=== PATIENT | female | born 2000 | race African-American/Black ===

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

== ENCOUNTER 2020-02-19 19:55 | Emergency (ER) | payer MEDICAID, SELFPAY ==
[2020-02-19 19:56] VITALS: BP 127/68; PULSE 77; RESP 16; TEMP 36.8; O2SAT 99; BMI 34.0
--- NOTE | 2020-02-19 20:09 | ED.VIS.GEN ---
History of Present Illness Chief Complaint: Bite Informant: Patient Onset: Days Context: Gradual Onset Timing: Continuous Current Severity: Moderate Maximum Severity: Moderate Narrative: The patient is an otherwise healthy female who presents to the emergency department with bites. Patient states that she is currently staying in a house of patient with disability has a home health aide. She states that 2 days ago, she woke with some bites on her arm. She states they itch but then went away. She states she slept in the same place and woke again today with the same symptoms. She denies any fevers or chills. She states that they have expanded and have been itching. She denies any other symptoms. She is otherwise been in her normal state of health. Prior similar symptoms: No Recent Illness/Hospitalization: No Past Medical History - Allergies and Home Meds Allergies/Adverse Reactions: Allergies No Known Allergies Allergy (Verified 02/19/20 19:58) Primary Care Physician: Tiffany Wells MD [Primary Care Provider] - Prior records reviewed: Yes Past Medical History: None Surgical History: no surgical history Smoking Status: Never smoker Review of Systems General: Denies: Chills, Fever, Sweats Eyes: Denies: Visual changes - bilaterally, Diplopia ENT: Denies: Rhinorrhea, Sore throat Cardiovascular: Denies: Chest pain, Palpitations Respiratory: Denies: Dyspnea, Cough, Dyspnea on exertion Gastrointestinal: Denies: Abdominal pain, Nausea, Vomiting, Diarrhea, Melena, Hematochezia Genitourinary: Denies: Dysuria, Hematuria, Frequency Musculoskeletal: Denies: Back pain, Extremity Pain Skin: Reports: Rash. Denies: Wounds Neurological: Denies: Headache, Weakness, Numbness Physical Exam Vital Signs/Narrative: Vital Signs Temp Pulse Resp BP Pulse Ox 02/19/20 19:56 98.3 F 77 16 127/68 H 99 Inital Vital Signs reviewed: Yes General: Well nourished, Well developed, No Acute Distress Head: Normocephalic, Atraumatic Eyes: Perrl, EOMI ENT: Moist mucous membranes, No rhinorrhea Neck: Supple, Nontender Cardiovascular: Regular rate, Regular rhythm, No murmurs Respiratory: No distress, CTA bilaterally, Chest nontender Abdomen: Soft, Nontender, Nondistended, Normal bowel sounds Back: Nontender, Normal Inspection Extremities: Nontender, No edema Skin: Normal color, Rash - Patient has linear urticaria on the left arm and left neck. There is no expansion or cellulitis. Neurological: Alert, Oriented x3, Cranial nerves II-XII grossly intact, Normal Strength, Normal Sensation Psychological: Normal affect, Normal Mood Diagnostic/Tx/Re-eval - Medical Decision Making The patient symptoms do seem consistent with bites. There is some urticaria and some swelling of the neck. There is no trismus or stridor. These do not seem to be infectious in nature. The patient will be treated with prednisone and Benadryl. She will be discharged home. Impression 1. Bug bites ED Disposition - Plan for ED Patient: Instructions: ED Insect Sting Local Reaction Prescriptions: Prednisone [Deltasone] 40 mg PO DAILY #10 tab Prescription Printed Referrals: Tiffany Wells MD [Primary Care Provider] -
[2020-02-19 20:39] VITALS: PULSE 74; RESP 18; O2SAT 99
[2020-02-19] MEDS: predniSONE 20 MG Tablet 40 MG PO (20:39)
[2020-02-19] MEDS: DiphenhydrAMINE 25 MG Capsule 50 MG PO (20:39)
== END 2020-02-19 20:41 | disposition home or self-care (01) ==
PROVIDERS: Emergency Provider Emergency Medicine; PCP Pediatrics
DX: S40.862A Insect bite (nonvenomous) of left upper arm, initial encounter (principal); S10.96XA Insect bite of unspecified part of neck, initial encounter; W57.XXXA Bitten or stung by nonvenomous insect and other nonvenomous arthropods, initial encounter; Y93.84 Activity, sleeping; Y92.003 Bedroom of unspecified non-institutional (private) residence as the place of occurrence of the external cause; Y99.8 Other external cause status
CPT/HCPCS: 99283

== ENCOUNTER 2020-04-10 22:10 | Outpatient (REF) | payer SELFPAY ==
[2020-04-11 01:15] LABS: Internal QC Validated? YES +Cl - CLEAR BKGD; Pregnancy, Urine Negative Negative
== END 2020-04-11 01:00 | disposition home or self-care (01) ==
LOC: EDREF 22:10
PROVIDERS: Emergency Medicine
DX: Z04.41 Encounter for examination and observation following alleged adult rape (principal)
CPT/HCPCS: 81025

== ENCOUNTER 2020-07-12 17:04 | Emergency (ER) | payer MEDICAID, SELFPAY ==
[2020-07-12 17:04] VITALS: BP 130/109; PULSE 129; RESP 18; TEMP 37.9; O2SAT 99; BMI 29.5
--- NOTE | 2020-07-12 17:34 | CT_ITS ---
STUDY: CT SOFT TISSUE NECK WITH CONTRAST REASON FOR EXAM: Female, 19 years old. FEVER, SORE THROAT, NEG STREP, TESTED FOR COVID THIS AM. RADIATION DOSAGE (If Supplied By Facility): CTDIvol = ( 17.58 ) mGy, DLP = ( 505.07 ) mGycm TECHNIQUE: The patient was scanned in a multi-detector CT scanner. High resolution transaxial imaging was performed following intravenous administration of IV 100mL Isovue-370. Sagittal and coronal images were reconstructed. Individualized dose optimization techniques were used for this CT. COMPARISON: None. FINDINGS: Normal bilateral parotid glands. Normal bilateral recyclable products sorter spaces. Normal bilateral parapharyngeal spaces. Normal bilateral carotid spaces. Normal bilateral sublingual and submandibular glands and spaces. Normal visualized nasopharynx. Normal retropharyngeal space. Normal perivertebral space. There is bilateral tonsillar enlargement, this is best seen on axial images 55 through 72. It is more pronounced on the left side with impingement upon the posterior lateral oropharynx. There is some subtle heterogeneous enhancement but no discrete low-density fluid collection is noted to suspect an abscess. ENT consultation recommended. The visualized tongue, tongue base and oropharynx are normal. The visualized cervical lymph nodes (levels I-) are within normal size limits, and maintain normal morphology. There is no demonstrated solid or cystic mass lesion. There is no abnormal contrast enhancement. Normal epiglottis, bilateral vallecula and hypopharynx. The pre-epiglottic and paraglottic adipose spaces are normal. Normal visualized bilateral piriform sinuses, aryepiglottic folds, vocal cords, and arytenoid-cricoid articulations. Normal subglottic trachea. Normal bilateral lobes of the thyroid gland. Normal visualized pulmonary apices. Normal visualized paranasal sinuses. Normal visualized cervical spine. CT/Soft Tissue Neck WITH Contrast IMPRESSION: There is bilateral pharyngeal tonsillar enlargement more pronounced on the left than the right consistent with tonsillitis. There is impingement upon the posterior and left side of the oropharynx. There is heterogeneous enhancement but no discrete low-density abscess is noted. ENT consultation is recommended. Bilateral subcentimeter jugular chain lymphadenopathy No suspicious osseous lesion Electronically Signed: Jose Manuel Hanks MD at 18:43 EDT , Service support ,
--- NOTE | 2020-07-12 17:47 | ED.DCSUM_ITS ---
- ER Visit Summary Date of Service: 07/12/20 Chief Complaint: Sore throat History of Present Illness: The patient is a 19 F presenting with sore throat and painful swallowing. She states this started 4 days ago. She was seen at urgent care yesterday and had a negative strep test done at that time. She was tested for COVID this morning and this test is still pending. She tried Tylenol at home. She denies sick contacts. She has had temperature up to 100 at home. Denies rhinorrhea or cough. Denies other complaints. Physical Examination: Vitals are stable. Temperature 100.2, heart rate 129. Alert no acute distress. HEENT exam bilateral tonsillar exudate, uvula midline Neck is supple. No meningismus Lungs are clear and equal bilaterally. Heart is regular tachycardic Abdomen is soft nontender nondistended. Extremities are unremarkable. Skin is warm and dry. No rash No focal neurologic deficit. Remainder of exam is unremarkable. Emergency Department Course and Treatment: Patient given IV fluids, Toradol. She was given Decadron and Tylenol p.o. Mckenzie negative. Strep negative. CT soft tissue neck shows there is bilateral pharyngeal tonsillar enlargement more pronounced on the left than the right consistent with tonsillitis. There is impingement upon the posterior and left side of the oropharynx. There is heterogeneous enhancement but no discrete low-density abscess is noted. ENT consultation is recommended. Bilateral subcentimeter jugular chain lymphadenopathy. No suspicious osseous lesion. Discussed with Dr. Noland. He recommends Augmentin and outpatient follow-up. On reevaluation, patient is feeling much improved. Her repeat heart rate is 100. She is able to swallow without difficulty. She is advised to follow-up with ENT. Advised return to the ED for worsening complaints. Disposition: Discharge home Impression: Tonsillitis This note was generated with [employer] dictation software. It may contain incorrect words, spelling, and punctuation that were not noted in review of the chart prior to signing ED Disposition - Plan for ED Patient: Referrals: Tiffany Wells MD [Primary Care Provider] -
[2020-07-12] MEDS: 0.9% Normal Saline 1,000 ML 1000 ML IV (18:03)
[2020-07-12] MEDS: Acetaminophen 500 MG Tablet 1000 MG PO (18:04)
[2020-07-12] MEDS: dexAMETHasone 4 MG Tablet PO (18:04)
[2020-07-12] MEDS: Ketorolac 15 MG/ML Vial IV (18:04)
[2020-07-12 18:27] LABS: Internal QC Validated? YES +Cl - CLEAR BKGD; Monotest Negative (Negative)
--- NOTE | 2020-07-12 20:08 | ED.DEP ---
ED Disposition - Plan for ED Patient: Prescriptions: Amox/Clavulanate Tablet [Augmentin Tablet] 875 mg PO Q12H #20 tab Prescription Printed Referrals: Tiffany Wells MD [Primary Care Provider] - Tristan Maguire MD [STAFF PHYSICIAN] -
[2020-07-12] MEDS: Amox/Clavulanate 875 MG Tablet PO (20:43)
[2020-07-12 20:46] VITALS: RESP 16
== END 2020-07-12 20:47 | disposition home or self-care (01) ==
LOC: ED 17:42
PROVIDERS: Emergency Provider Emergency Medicine; PCP Pediatrics
DX: J03.90 Acute tonsillitis, unspecified (principal); Z20.828 Contact with and (suspected) exposure to other viral communicable diseases
CPT/HCPCS: 70491; 86308; 87635; 87880; 96361; 96374; 99285; C9803; J7030; Q9967; A4216; U0003

== ENCOUNTER → 2020-07-12 | Outpatient (CLI) | payer MEDICAID, SELFPAY | END | disposition home or self-care (01) | LOC: MTDU 10:12 | PROVIDERS: PCP Pediatrics; Referring Provider Nurse Practitioner Family; Visit Provider Nurse Practitioner Family | DX: J02.9 Acute pharyngitis, unspecified (principal) | CPT/HCPCS: 87635; C9803; U0003 ==

== ENCOUNTER 2020-07-13 10:54 | Emergency (ER) | payer MEDICAID, SELFPAY ==
[2020-07-12 17:04] VITALS: BMI 29.5
[2020-07-13 10:54] VITALS: BP 136/79; PULSE 100; RESP 18; TEMP 36.6; O2SAT 100; BMI 29.5
--- NOTE | 2020-07-13 11:13 | ED.VIS.GEN ---
History of Present Illness Chief Complaint: Sore Throat Informant: Patient Narrative: Patient was seen here yesterday, diagnosed with tonsillitis after having had a CT that showed nothing discrete, she had a negative strep test, negative mono test, she was having fevers, she was placed on Augmentin mainly due to CT findings of pharyngeal tonsillitis and heterogeneous densities. She presents saying that after she received Decadron yesterday, she improved yesterday evening and was able to eat and drink better. However this morning, she feels like things are more swollen in the back of her throat, and it is very painful to drink. She is not able to eat, but she was able to drink without vomiting, and she was able to take her Augmentin. So far she has had 2 doses of that total. Her fevers have resolved. Other than her throat, she is asymptomatic and has not developed a rash. Past Medical History - Allergies and Home Meds Allergies/Adverse Reactions: Allergies No Known Allergies Allergy (Verified 07/13/20 10:56) Primary Care Physician: Tiffany Wells MD [Primary Care Provider] - Past Medical History: None Surgical History: no surgical history Smoking Status: Never smoker Review of Systems General: Denies: Chills, Fever, Sweats Eyes: Denies: Visual changes - bilaterally, Diplopia ENT: Reports: Sore throat - With feeling of swelling. Denies: Bilateral ear pain, Rhinorrhea Cardiovascular: Denies: Chest pain, Palpitations Respiratory: Denies: Dyspnea, Cough, Dyspnea on exertion Gastrointestinal: Denies: Abdominal pain, Nausea, Vomiting, Diarrhea, Melena, Hematochezia Genitourinary: Denies: Dysuria, Hematuria, Frequency Musculoskeletal: Reports: Neck pain - Anterior submandibular. Denies: Myalgias, Back pain, Swelling, Extremity Pain Skin: Denies: Rash, Wounds Neurological: Denies: Headache, Weakness, Numbness Physical Exam Vital Signs/Narrative: Vital Signs Temp Pulse Resp BP Pulse Ox 07/13/20 10:54 98 F 100 18 136/79 H 100 Inital Vital Signs reviewed: Yes General: Well nourished, Well developed, No Acute Distress Head: Normocephalic, Atraumatic Eyes: Perrl, EOMI ENT: Moist mucous membranes, No rhinorrhea, - - Mild trismus but able to open her mouth almost fully. Posterior oropharynx erythematous, there are tonsillar exudates, but the tonsils are not significantly edematous, the middle of the posterior oropharynx is widely patent between them. There is no gross asymmetry. Tongue is normal and not elevated, the floor the mouth is soft and nondistended. Neck: Supple - Full range of motion, no meningismus., - - Tender anterior submandibular lymphadenopathy bilaterally. No posterior lymphadenopathy or tenderness. Respiratory: No distress - Speaking full sentences, conversive, comfortable Extremities: Nontender, No edema Skin: Normal color, No rash, No Trauma Neurological: Alert, Oriented x3, Cranial nerves II-XII grossly intact, Normal Strength, Normal Sensation Psychological: Normal affect, Normal Mood Diagnostic/Tx/Re-eval - Medical Decision Making As I discussed with the patient, if this is bacterial in etiology, the antibiotics will not have made significant impact with only 2 doses so far. Therefore do not think she has failed outpatient treatment. She is able to pass fluids as well as a large Augmentin pill which is reassuring. I am not concerned about her not being able to eat for a day or 2 as I discussed with her. She is okay with a liter of IV fluids, so we will give her IV Toradol and a dose of Solu-Medrol which hopefully will help with the swelling until the antibiotics start to take clinical effect. She is comfortable with this, encouraged to drink fluids, and we discussed ENT follow-up and reasons to return. ED Disposition - Plan for ED Patient: Disposition: Home or Assisted Living Diagnosis: Acute tonsillitis Instructions: ED Tonsillitis Referrals: Tristan Maguire MD [STAFF PHYSICIAN] - 1-2 Days if not improving
[2020-07-13] MEDS: Ketorolac 30 MG/ML Syringe IV (11:20)
[2020-07-13] MEDS: MethylPREDNISolone 125 MG/2 ML Vial IV (11:20)
[2020-07-13] MEDS: 0.9% Normal Saline 1,000 ML 999 ML IV (11:21)
== END 2020-07-13 13:07 | disposition home or self-care (01) ==
PROVIDERS: Emergency Provider Emergency Medicine; PCP Pediatrics
DX: J03.90 Acute tonsillitis, unspecified (principal); Z79.2 Long term (current) use of antibiotics
CPT/HCPCS: 96361; 96374; 96375; 99282; J7030; A4216

== ENCOUNTER 2021-01-05 09:00 | Outpatient (RCR) | payer MEDICAID, SELFPAY ==
--- NOTE | 2021-01-05 09:00 | BH.COMM ---
Communication Note - Communication with Client Communication Note: Met with pt to completed initial paperwork. No significant changes since pre-admission screening. Completed [place] Suicide Screening and pt is not imminent darion.
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
--- NOTE | 2021-01-05 11:20 | BH.SGPN.GN ---
Behaviors/Verbalizations/Mental Status: []Client alert and oriented, casually dressed and appropriately groomed. Eye contact fair. Motor activity appropriate. Speech within normal limits. Affect constricted, mood depressed. Thoughts linear, logical, no signs of hallucinations or delusions. Client Response/Progress/Benefit: []Pt engaged participant AEB pt providing input during session, listened attentively to others and completed worksheet. Pt benefitted from listening as group reflected upon the mental health benefits of taking small actionable steps towards addressing barriers and promoting healthy change in daily life. Pt stated she will work on improving her boundaries. Pt reported she will reframe at least 3 negative thoughts a day. Progress can be noted with pt following through with safety plan created to maintain safety, however continues to engage in self-sabotaging behaviors that keep her stuck. Recommended continued IOP tx to increase use of healthy skills, maintain safety and prevent decompensation. Narrative Note: []
[2021-01-05 11:25] VITALS: BP 119/71; PULSE 82
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
--- NOTE | 2021-01-05 13:00 | BH.DR.ITP ---
Initial Treatment Plan - Patient Information Visit Information: ADMISSION DATE: EXPECTED LOS: 4-6 weeks - Problems/Symptoms Problem #1:: Depression Symptom:: Sadness, hopelessness, worthlessness, guilt, biological disruption of sleep, decreased concentration, low energy, fleeting suicidal ideation, passive thoughts of Problem #2:: Anxiety Symptom:: Constant worry, avoidant behaviors, racing thoughts, flashbacks, reexperiencing
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
--- NOTE | 2021-01-06 10:15 | BH.SGPN.GN ---
Behaviors/Verbalizations/Mental Status: []Client alert and oriented, casually dressed and groomed. Eye contact good. Motor activity appropriate. Speech within normal limits. Affect congruent, mood euthymic and anxious. Thoughts linear, logical, no signs of hallucinations or delusions Client Response/Progress/Benefit: []Client engaged in session AEB client providing input throughout discussion, taking notes, and listening attentively to peers. When processing quote client shared connecting with the importance of setting boundaries in order to love yourself. Client assisted group with identifying barriers to setting healthy boundaries. These included: past negative experiences, low self-worth, fear they won?t respect them, fear of hurting others, and distorted thoughts. Client attentive during psychoeducation on the types of boundaries. Shared personal examples and noted struggling to respect her own time boundaries as she often stays places later than she really has time to. Client seemed to benefit from increased awareness of how boundaries impact mental health. Will continue IOP tx to improve use of healthy coping, challenge distorted thoughts, and reduce mental health sx. Narrative Note: []
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
--- NOTE | 2021-01-12 08:58 | BH.SGPN.GN ---
Behaviors/Verbalizations/Mental Status: []Eye contact is fair to good. Alert and oriented. Motor activity is appropriate. Appearance is casual. grooming is appropriate. Speech is Appropriate. Mood is depressed. Affect is congruent. Thoughts are linear and logical. No evidence of psychosis or hallucinations. Client Response/Progress/Benefit: [] Pt engaged in session AEB listening to others and willingness to share thoughts and feelings with group. Pt did well to identify small personal wins despite having several stressors. Noted she was feeling ?tired? on this date as she has been working third shift and often struggles to get adequate rest afterward. Shared this has been an ongoing stressor as she feels more emotionally vulnerable when tired and believes this has inhibited her ability to set and maintain healthy boundaries with her ex at present. Receptive of supportive feedback and suggestions provided by group. Shared current wins which included: getting to IOP tx despite wanting to sleep through it, as well as continuing to find healthy outlets for her emotions such as writing. Identified current skills used as: deep breathing, journaling, opposite action, and positive self-talk. Recommended continued IOP tx to continue focus on improving coping skill application, promote healthy boundaries, and prevent decompensation. Narrative Note: []
--- NOTE | 2021-01-12 10:03 | BH.SGPN.GN ---
Behaviors/Verbalizations/Mental Status: []Client alert and oriented, casually dressed and groomed. Eye contact fair. Motor activity appropriate. Speech within normal limits. Affect constricted, mood dysthymic. Thoughts linear, logical, no signs of hallucinations or delusions. Client Response/Progress/Benefit: []Client engaged during session AEB client providing input at times during discussion and completing worksheet. Connected with discussion on crisis and how coping with external crises by using unhealthy coping skills could result in a personal crisis. Group reflected on the importance of having awareness of personal warning signs in order to prevent reaching crisis point. Group identified potential warning signs for crisis and client completed the personal warning signs worksheet. Client identified personal crisis warning signs to include: feeling disconnected, rapid mood changes and racing thoughts. Client benefited by increasing awareness of what leads to crisis and personal warning signs. Pt will continue IOP to improve self-confidence, follow through with healthy boundaries and prevent decompensation.
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
--- NOTE | 2021-01-12 14:53 | BH.MTP_ITS ---
[facility] Treatment Plan - Patient Information Program Physician:: Dr. Ken Primary Therapist:: Malgorzata Chatterjee, [facility] - Psychiatric Diagnoses Psychiatric Diagnoses:: Major depressive disorder, recurrent, severe without psychosis; cannot rule out bipolar disorder, NOS; generalized anxiety disorder; PTSD; bulimia nervosa; polysubstance abuse (THC, methamphetamine, alcohol); strong cluster b traits Diagnosis Code(s):: F33.2 - Estimated LOS Estimated LOS (in weeks):: 6 Problem/Goal #1 - Problem/Goal #1 Stated Goal:: Client will reduce depression, feelings of hopelessness, guilt and passive thoughts of due to Major Depressive Disorder through Intensive Outpatient Program. Description of Barriers: drug and alcohol use, distorted thoughts, putting others needs ahead of her own, continuing to stay in contact with ex-girlfriend, poor boundaries, limited healthy support system, and low self-worth. Functional Impact: Pt self-referred to IOP due to worsening anxiety, depression and fleeting suicidal ideation. Most significant stressor is a toxic relationship for the past 5 years. Limited support since break-up with girlfriend. Long hx of drug use. Last used methamphetamine 10 days ago. Currently still drinking alcohol daily and smoking marijuana. Endorses depressed mood with no motivation, feeling hopeless, worthlessness, low energy, decreased concentration, guilt, apathy, anhedonia, and fleeting suicidal thoughts. Pt?s mental health symptoms negatively impacting her social and personal functioning. - Objectives Objective #1 Stated Objective: Client will learn and utilize 2-3 healthy coping strategies to manage depressive symptoms. Interventions: Therapist will utilize CBT techniques to assist client with understanding the connection between thoughts, feelings and behaviors. Education will be provided on behavioral activation. Therapist will assist client in learning internal coping strategies to manage depressive symptoms, along with helping client identify triggers. Discharge Criteria: Client will have achieved this goal when can verbalize and practiced at least 2 healthy coping strategies that successfully manage depressive symptoms. Target Date: 02/16/21 Review Date: 02/02/21 Objective #2 Stated Objective: Pt will decrease depressive symptoms AEB pt?s score on the DSM 5 cross-cutting measure and improve pt?s daily functioning. Interventions: Through groups and individual therapy, pt will be provided with education on cognitive distortions, mistaken beliefs, and identifying and combating negative self-talk. Therapist will assist pt with getting back into the activities she once enjoyed as well as increasing healthy coping strategies. Discharge Criteria: Pt will have met this goal when pt?s score on the DSM 5 cross cutting measure for depression has been decreased by 50% and per pt?s repo rt daily functioning has improved. Target Date: 02/16/21 Review Date: 02/02/21 Problem/Goal #2 - Problem/Goal #2 Stated Goal:: Client will reduce overall frequency, intensity, and duration of the anxiety so that daily functioning is not impaired. Description of Barriers: drug and alcohol use, distorted thoughts, putting others needs ahead of her own, continuing to stay in contact with ex-girlfriend, poor boundaries, limited healthy support system, and low self-worth. Functional Impact: Pt self-referred to IOP due to worsening anxiety, depression and fleeting suicidal ideation. Most significant stressor is a toxic relationship for the past 5 years. Limited support since break-up with girlfriend. Long hx of drug use. Last used methamphetamine 10 days ago. Currently still drinking alcohol daily and smoking marijuana. Endorses depressed mood with no motivation, feeling hopeless, worthlessness, low energy, decreased concentration, guilt, apathy, anhedonia, and fleeting suicidal thoughts. Pt?s mental health symptoms negatively impacting her social and personal functioning. - Objectives Objective #1 Stated Objective: Client will learn and implement 2-3 calming skills to reduce overall anxiety and manage anxiety symptoms. Interventions: Through individual and group therapy pt will learn calming/relaxation skills. Homework will be assigned to practice relaxation skills daily. Discharge Criteria: Client will have achieved this goal when can verbalize at least 2 calming skills and implement those skills. Target Date: 02/16/21 Review Date: 02/02/21 Objective #2 Stated Objective: Pt will decrease anxious symptoms AEB pt?s score on the DSM 5 cross-cutting measure improve pt?s daily functioning. Interventions: Through groups and individual therapy, pt will be provided education about anxiety?s impact on body and common physiological reaction to anxiety. Therapist will teach pt appropriate breathing techniques and build healthy coping skills to manage daily anxieties. Discharge Criteria: Pt will have met this goal when pt?s score on the DSM 5 cross cutting measure for anxiety has decreased by 50% and per pt?s report daily functioning has improved. Target Date: 02/16/21 Review Date: 02/02/21
--- NOTE | 2021-01-14 10:08 | BH.SGPN.GN ---
Behaviors/Verbalizations/Mental Status: []Client alert and oriented, casually dressed and groomed. Eye contact good. Motor activity appropriate. Speech within normal limits. Affect constricted, mood anxious. Thoughts linear, logical, no signs of hallucinations or delusions. Client Response/Progress/Benefit: []client receptive to session, listening attentively to others and providing input. Appeared to listen as the group brainstormed the positive and negative aspects of stress on physical and mental health. Group worked together to define stress and provided input during discussion about eustress vs distress. Client identified personal stressors which included: anxiety and eating disorder, change, addiction, relationships, indecisiveness, fear, and mental health. Client states when client is overwhelmed with stress client isolates and ?wants to throw my hands up and give up.? Seemed to benefit from increased awareness of current stressors and impact of too much stress on the mind and body. Recommended to continue IOP tx to prevent decompensation, learn healthier coping skills, and improve relationships. Narrative Note: []
--- NOTE | 2021-01-14 11:10 | BH.SGPN.GN ---
Behaviors/Verbalizations/Mental Status: []Client alert and oriented, casually dressed and groomed. Eye contact fair. Motor activity appropriate. Speech within normal limits. Affect congruent, mood anxious and dysthymic. Thoughts linear, logical, no signs of hallucinations or delusions. Client Response/Progress/Benefit: []Client engaged in session AEB listening attentively to others, providing input, and taking notes throughout. Client remained attentive during discussion about the 4 A's of managing stress and discussed connecting with the various benefits of each. Client was active in the group activity and reported the increased communication help the group to meet the goal of activity. Client also recognized how external obstacles can increase stress and understands the importance of controlling what is in your control. Benefited from group as client increased self-awareness and engaged with peers. Will continue IOP to promote the use of healthy coping skills, challenge negative thoughts, and decrease isolation. Narrative Note: []
--- NOTE | 2021-01-18 09:00 | BH.SGPN.GN ---
Behaviors/Verbalizations/Mental Status: []Eye contact is fair. Alert and oriented. Motor activity is appropriate. Appearance is casual. grooming is appropriate. Speech is Appropriate. Mood is depressed. Affect is congruent. Thoughts are linear and logical. No evidence of psychosis or hallucinations. Pt indicates SI at a rate of 3/5 and intent being 2/5 which is above baseline. Willing to meet with individual therapist for further assessment and safety planning. Client Response/Progress/Benefit: []Pt engaged in session AEB listening to others and willingness to share thoughts and feelings with group. Pt did well to identify personal wins. Pt noted she was feeling ?sad and anxious? on this date as she has been struggling with using her free time in healthy ways and setting healthy boundaries. Shared this continues to be a significant stressor for her and that her poor boundaries have reinforced feelings of depression and guilt. Identified reaching out to healthier supports as a strategy for beginning to manage this stressors. Despite struggling, pt did well to identify current wins which included: taking time for herself and going shopping for some things she needs, as well as remaining medication compliant despite struggling to maintain an otherwise consistent schedule. Expressed feeling particularly proud of herself for this as she has struggled with medication compliance in the past. Identified current skills used as: opposite action, deep breathing, and practicing self-care. Recommended continued IOP tx to further improve mental health sx management, continue to reduce depressive sx, improve healthy boundaries, and prevent decompensation. Narrative Note: []
--- NOTE | 2021-01-18 10:05 | BH.SGPN.GN ---
Behaviors/Verbalizations/Mental Status: [] Eye contact is good. Motor activity is appropriate. Appearance is casual. Speech is Appropriate. Mood is depressed. Affect is flat. Thoughts are linear and logical. No evidence of psychosis. Client Response/Progress/Benefit: [] Pt was an active participant in group discussions and group activity. Attentive and provided input of along with peers on benefits on examples of healthily support ( co-workers, pets, teachers, family, friends, medications, providers, arnol, and Us as individuals), the benefits of support (outside perspective, helps break negative cycles, educational, helps us connect with others, decreases loneliness, and gives us permission to not be OK), and the barriers to support (difficult to trust others, fear of being vulnerable, past negative experiences, feelings that we don't deserve support, and feelings that we are burden to support). Able to see the impact of support and its benefits during activity and challenges of accomplishing tasks w/o proper support. Pt shared the impact of toxic relationships and people and how this impacts her mental wellness. Benefited from awareness of barriers to support as well as importance of support in mental health wellness. Narrative Note: []
--- NOTE | 2021-01-18 11:05 | BH.SGPN.GN ---
Behaviors/Verbalizations/Mental Status: []Client alert and oriented, disheveled appearance. Eye contact good. Motor activity appropriate. Speech within normal limits. Affect flat, mood dysthymic and anxious. Thoughts linear, logical, no signs of hallucinations or delusions. Client Response/Progress/Benefit: []Client an active participant throughout AEB contributing to discussion, taking notes, and providing supportive feedback. Client participated in the group activity highlighting the various barriers to effectively utilizing supports and strategies the group used. Client participated in discussion of the four types of support (emotion, tangible, informational, and social) and gave examples for all types. Client reports wanting to work on increasing social/peer support. Client stated this will help client gain healthy support from people who are ?genuine and trustworthy.? Client shared it is hard for her to trust and build new support. Client plans to do this by practicing being vulnerable with her grandmother. Client seemed to benefit from identifying the type of support she wants to improve. Client to continue in IOP tx to prevent decompensation, promote sobriety, and learn healthy coping skills. Narrative Note: []
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
--- NOTE | 2021-01-19 09:05 | BH.SGPN.GN ---
Behaviors/Verbalizations/Mental Status: []Client alert and oriented, casually dressed and appropriately groomed. Eye contact fair. Motor activity appropriate. Speech within normal limits. Affect constricted, mood anxious. Thoughts linear, logical, no signs of hallucinations or delusions. Per symptom tracker pt indicates a 2/5, with 5 being severe, for suicidal ideation and a 1/5 for suicidal intention. This is a decrease in SI and intent compared to yesterday's symptom tracker. Does not appear to be imminent risk to harm self or others. Client Response/Progress/Benefit: [] Patient responded to session as evidenced by patient listening attentively to others and sharing thoughts and feelings. Patient reported she was able to Accomplish her goal of opening up to her grandmother how she is truly feeling. Patient stated it went really well because her grandmother was supportive and expressed being proud of patient for trying to get help. Patient identified utilizing the skills of self-care and self awareness. Patient stated she is noticing manic-like symptoms because she has not slept in 2 days and is feeling more dissociated. Patient probably started with patient having awareness of her symptoms and following through with a goal. Patient to continue IOP level of care to increase healthy connections, decrease utilization of unhealthy coping skills, and prevent decompensation. Narrative Note: []
--- NOTE | 2021-01-19 10:10 | BH.SGPN.GN ---
Behaviors/Verbalizations/Mental Status: []Client alert and oriented, disheveled appearance. Eye contact good. Motor activity appropriate. Speech within normal limits. Affect constricted, mood dysthymic. Thoughts linear, logical, no signs of hallucinations or delusions. Client Response/Progress/Benefit: []Pt was an active participant in group discussion and was attentive during psychoeducation. Provided input on the quote of the day and shared ?your thoughts impact your emotions and behaviors.. You can create confidence or destroy it.? Group was primarily educational and introduced and gave examples of the 10 cognitive distortions. Pt provided some examples of personal experiences with cognitive distortions such as mind-reading and predicting the future. Pt reported she has predicted the future correctly at times, which then reinforces her negative thinking. Benefited from education and increased awareness of cognitive distortions and the role that they play in negative thoughts and emotions. Pt recently relapsed and is experiencing increased depression this week. Will continue IOP tx to prevent decompensation, increase healthy support, and improve emotional regulation skills. Narrative Note: []
--- NOTE | 2021-01-19 14:39 | BH.MDN ---
Multi-Disciplinary Note - Note 30-min Individual Time Started:: 11:30 Date: 01/19/21 Purpose of session/treatment goals addressed:: Purpose of session was to address goal 1 from MTP. Eye Contact:: Fair Motor Activity:: Restless Appearance:: Casual Speech:: Appropriate Mood:: Depressed Affect:: Constricted Thoughts:: Linear, Logical, No evidence of hallucinations/delusions noted Staff Interventions:: Therapist used open ended questions to elicit pt's current symptoms and stressors. Therapist reviewed goal from last individual session. Therapist assisted pt with identifying trigger to recent relapse. Therapist elicited consequenes of pt hanging out with her ex. Collaborated with pt to identify goal for the week. Provided support by validating emotions and actively listening. Client Response:: Pt reported she relapsed on meth this weekend which she attributes to feeling manic on Sunday. Pt stated she went shopping on Sunday and noticed she was starting to get a fuck it attitude. Pt reported on Sunday she decided to hang out with a friend that she stated she wouldn't have hung out with if wasn't feeling manic. Pt stated while with this friend she relapsed by doing meth. Pt reported she also hung out with her ex on Sunday and Sunday. Pt stated she is frustrated with herself because she doesn't want to use anymore and knows hanging out with her ex is toxic. Pt able to identify the following as consequences of being around her ex: having overwhelming sense of emptiness, constant fight or flight feeling, triggers drinking and drugs, loss of focus on self, triggers mood instability, increased depression, emotional abuse, and hinders treatment progress. Pt stated she continues to hang out with her ex because she struggles with filling her freetime and her ex is often available. Pt stated her goal is to tell her ex that she will not be able to hangout with her for a week. Pt reported she did complete goal from last session of talking to grandma about being allowed to decorate her bedroom at grandnc's house. pt stated her grandma told her it was okay for pt to stay there as long as she needed and that pt could decorate. Pt stated when she has free time she will spend some of that time creating a more calming environment. Risks/Concerns:: Pt indicated suicidal ideation and some intent on this morning's symptom tracker. Pt states feels able to maintain safety. Pt denies active intention. Pt agreeable to go to nearest emergency room if feels unable to maintain safety. Progress Toward Goals/Plan:: Decline in progress noted by pt relapsing over the weekend and reporting mood instability. Pt to continue IOP to increase healthy coping, maintain sobriety and prevent decompensation. Time Stopped:: 12:06
--- NOTE | 2021-01-25 11:10 | BH.SGPN.GN ---
Behaviors/Verbalizations/Mental Status: []Client alert and oriented, casually dressed and groomed. Eye contact good. Motor activity appropriate. Speech within normal limits. Affect constricted, mood anxious. Thoughts linear, logical no signs of hallucinations or delusions. Client Response/Progress/Benefit: []Client responded well to session, participating during the group activity and willing to complete the worksheet. Client completed the fear of failure worksheet and reported that fear of failure has kept client from personal growth and kept her leaving toxic situations. Client able to identify barriers that reinforce fear of failure which included: negative thoughts like I'm not going to do well enough and You failed last time. Client attentive during discussion of the different strategies to help overcome fear of failure. Client reports strategies will use to combat fear of failure include: learning from past failure, reminding self failure is okay, and opposite action. Client appeared to benefit from increasing insight to barriers and learning healthy coping skills. Will continue IOP tx to stabilize moods, challenge distorted thoughts and prevent decompensation.
--- NOTE | 2021-01-25 14:01 | BH.MDN ---
Multi-Disciplinary Note - Note 30-min Individual Time Started:: 12:02 Date: 01/25/21 Purpose of session/treatment goals addressed:: Purpose of session was to address goal 1 from mtp. Eye Contact:: Fair Motor Activity:: Restless Appearance:: Casual Speech:: Appropriate Mood:: Anxious, Depressed Affect:: Constricted Thoughts:: Linear, Logical, No evidence of hallucinations/delusions noted Staff Interventions:: Therapist used open ended questions to elicit pt's current symptoms and stressors. Reveiwed homework from last individual session. Assessed lethality. Assisted pt with identify barriers to treatment. Reviewed healthy coping skills and importance of boundary setting. Discussed pt needing to go to a substance focused program if continues to use meth. Provided support by using active listening and validating emotions. Client Response:: Pt reported I almost went to the hospital because I was legit suicidal. Pt stated everyday is a new problem. Pt reported she was super suicidal three days ago after hanging out with her ex-girlfriend. Pt reported she is feeling stagnant and was hopeless because keeps reverting back to unhealthy things. Pt reported two days ago she did a line of meth. Pt stated she didn't do enough to feel anything but did it because was with the friend. Pt reported she recognizes even if she doesn't feel the effects of the drug it still is negatively impacting her brain and functioning. Pt reported she does not believe she needs to go to a substance abuse IOP at this time. Pt stated she understands by continuing to use drugs, like meth, it is hindering her treatment progress. Pt reported she plans to distance herself from the people in her life that do meth. Pt stated she wants to continue this program because her mental health is why she uses drugs. Pt reported she didn't do well with goal of staying away from her ex. Pt stated she knows she needs to completely distance self from ex but struggles with losing that connection. Pt reported although she knows the connection is unhealthy it is hard to break away especially if feeling lonely. Pt stated her goal is to not answer phone calls from her ex and to set a boundary if her ex shows up at her workplace. Pt reported she did accomplish goal from last week of getting her room decorating. Pt stated her room does feel more calming to her. Pt able to identify importance of setting boundaries. Identified taking a walk as a healthy, calming skill she could engage in. Risks/Concerns:: Pt reports passive thoughts of , denies suicidal plan or intention. Pt future focused. Identifies healthy coping skills and reasons to live. Pt agreeable to go to nearest emergency room or call 911 if can't maintain safety. Progress Toward Goals/Plan:: Progress limited as evidenced by pt reporting relapse on using meth, continuing to hangout with toxic ex-girlfriend, and difficulty applying healthy coping skills when needed. Pt to continue IOP to stablize moods, increase consistent use of healthy coping skills and prevent decompensation. Time Stopped:: 12:35
--- NOTE | 2021-01-26 12:32 | PCM.BH.PN ---
Progress Note Progress Note: History of Present Illness/Interim History: [] The patient is a 20-year-old single female who is seen in follow-up at the [facility] behavioral health IOP program. She is being treated for depression, anxiety, PTSD and she was last seen 3 weeks ago. At that time the patient was started on Zoloft which she says she took for 2 weeks or so. She says she felt good in the first 2 weeks but then feels that she got manic for a week followed by depression. She discontinued the Zoloft 3 days ago. She says that when she her mood went down she had suicidal ideation 5 days ago which has since resolved. The patient also admits to using methamphetamine maybe 4 days ago and does not know for sure how many days ago she used meth. Patient is working third shift and she says this is why sometimes her days get mixed up. She admits also to drinking 2-3 times in the past few weeks since I saw her last. She says she only drinks 1-2 drinks maybe 3 days a week. The patient says that she has been sleeping too much and and always feels tired despite getting 9 hours of sleep at night. Stressors have not changed to last week and she since last week and she remains broken up with her ex-girlfriend. She denies any suicidal ideation or passive thoughts of now. Current Psychiatric Medications: [] Zoloft 50 mg p.o. daily for several weeks which was discontinued several days ago. Vistaril as needed for anxiety which she is unclear about how often she is taking this. Laboratory is pending. Patient is a 20-year-old female who is seen wearing a mask due to the pandemic. She is casually dressed and groomed with good hygiene. Eye contact is fair and speech is normal rate and rhythm and fluent without pressure. Mood is euthymic today. Affect is full and normal. Thought process is goal-directed and organized. Thought content: There is no evidence of suicidal ideation, homicidal ideation, thoughts of , hallucinations or delusions. Impulsivity is high. Insight is poor. Judgment is limited. Mental Status Examination: [] Diagnoses: [] [place] I: [] Bipolar, NOS; generalized anxiety disorder; PTSD; bulimia nervosa; polysubstance abuse (THC, methamphetamine, alcohol [place] II: [] Strong cluster B traits, rule out borderline personality disorder [place] III: [] Negative [place] IV:[]] Primary support, school, work issues Plan: [] The patient will continue the IOP program at [facility] as the structure, support, education, individual and group therapy will hopefully prevent worsening of the patient's symptoms. She felt safe during the interview and if it anytime she does not feel safe she will let us know or go to the emergency room. The risk, options, possible complications and side effects of the patient's medications were discussed and she understands accepts these. She agrees to stay off the Zoloft. Discussion was had and the patient was counseled that if she continues to do to use drugs she will not benefit from the medications I prescribed or from the program in general. She agrees to try Latuda 40 mg p.o. daily she will take the Latuda with a meal when she gets gets off work in the morning. The patient is still working third shift and works nights and gets off early in the morning and then goes to sleep.
== END 2021-01-26 23:59 ==
LOC: BHIOP 09:00
PROVIDERS: PCP Pediatrics; Referring Provider Psychiatry & Neurology Psychiatry; Visit Provider Psychiatry & Neurology Psychiatry
DX: F31.9 Bipolar disorder, unspecified (principal); F41.8 Other specified anxiety disorders; F43.10 Post-traumatic stress disorder, unspecified; F50.2 Bulimia nervosa; F14.10 Cocaine abuse, uncomplicated; F10.10 Alcohol abuse, uncomplicated; Z79.899 Other long term (current) drug therapy
CPT/HCPCS: 90792; 99213; H0035; H2012; H2020; T1002; 90832; 90834

== ENCOUNTER 2021-02-01 09:00 | Outpatient (RCR) | payer MEDICAID, SELFPAY ==
[2021-01-27 00:50] VITALS: BP 119/71; PULSE 82
--- NOTE | 2021-02-01 08:56 | BH.SGPN.GN ---
Behaviors/Verbalizations/Mental Status: []Eye contact is fair. Alert and oriented. Motor activity is appropriate. Appearance is casual. grooming is appropriate. Speech is Appropriate, soft. Mood is anxious and depressed. Affect is incongruent AEB reports of being happy but appearing depressed. Thoughts are linear and logical. No evidence of psychosis or hallucinations. Reports SI as a 1/5 which is consistent with baseline, denies any plan, or intent as of this date. Client Response/Progress/Benefit: []Pt engaged in session AEB listening to others, providing supportive feedback, and willingness to share thoughts and feelings with group. Pt noted feeling ?restless but happy? on this date. Attributes this to accomplishing several goals over the weekend but not taking time to rest as needed and feeling anxious and on-edge today as a result. Did well to identify current wins which included: cleaning her grandma?s attic, going to the gym, and starting new psych medication. Expressed feeling proud and accomplished by going to the gym as this has been a personal self-care goal. Identified skills used as: opposite action, positive self-talk, and grounding skills. Shared current stressor as struggling with balance as client often accomplishes several tasks and then ?crashes? and isolates for several days. Receptive of discussing strategies for improving balanced self-care. Recommended ongoing IOP tx to improve self-care, continue to promote healthy change behaviors, and prevent decompensation. Narrative Note: []
--- NOTE | 2021-02-01 10:10 | BH.SGPN.GN ---
Behaviors/Verbalizations/Mental Status: []Alert and oriented. Eye contact is fair-head down at times. Motor activity is appropriate. Appearance is casual. Speech is Appropriate. Mood is depressed. Affect is constricted. Thoughts are linear and logical. No evidence of psychosis. Client Response/Progress/Benefit: []Pt was an active participant in group discussion and activity. Connected with quote and shared ?if you only rely on external forces you stay stagnant.?? Attentive during psychoeducation.? Pt worked with group to identify forces that can impact growth and overall mental health. Pt has her head down most of the discussion and shared she was ?spaced out? at times. Participated in the activity and did well to work through her anxiety in the moment.? Pt benefited from increased awareness of the impact positive and negative forces can have on mental health and personal growth. Client?s progress continues to be variable which could be due to her inconsistent attendance and lack of healthy supports. Will continue IOP tx to prevent decompensation, provide healthy support, and reduce use of unhealthy coping skills. Narrative Note: []
--- NOTE | 2021-02-01 11:20 | BH.SGPN.GN ---
Behaviors/Verbalizations/Mental Status: []Client alert and oriented, casually dressed and groomed. Eye contact good. Motor activity appropriate. Speech WNL. Affect constricted, mood depressed. Thoughts linear, logical, no signs of hallucinations or delusions. Client Response/Progress/Benefit: []Pt engaged during session AEB pt providing input at times during session, completed worksheet and listened attentively to peers. Group processed the activity and identified positive and negative forces impacting ability to complete the challenge. Pt was attentive during psychoeducation and appeared to benefit from increased insight on the impact of negative and positive forces on mental wellness. Identified positive forces as: grandma, job, exercise, self-care, medications, and thinking of the future. Identified negative forces: ex, insecurity, anxiety, poor communication, unhealthy boundaries and eating disorder. Identified wanting to focus on improving communication by being honest with others about how she is feeling. Pt recommended continued IOP tx to demonstrate consistent utilization of healthy coping, continue to set healthy boundaries and prevent decompensation. Narrative Note: []
--- NOTE | 2021-02-07 09:03 | BH.SGPN.GN ---
Behaviors/Verbalizations/Mental Status: []Client alert and oriented, casually dressed. Eye contact fair. Motor activity appropriate. Speech within normal limits. Affect constricted, mood anxious and dysthymic. Thoughts linear, logical, no signs of hallucinations or delusions. Reviewed client?s symptom tracker, client reported herself within her baseline for suicide ideation, plan, or intent. Client Response/Progress/Benefit: []Pt responded well to session AEB pt listening attentively to peers and openly sharing thoughts and feelings. Pt reported she has been focusing on giving herself the credit she deserves and staying away from toxic people. Pt stated she has been using the following skills: working out, grounding, opposite action, mindfulness. Pt stated she has been feeling more energized since working out. Stated stressor is hurting knee at gym, worried she is going to have to take a break. Pt reported additional stressor is having a feeling of doom that something bad is going to happen. Pt identified feeling confused and anxious. Progress noted with pt using healthy skills to manage stress. Pt to continue IOP to continue use of healthy coping, challenge distorted thoughts and prevent decompensation. Narrative Note: []
--- NOTE | 2021-02-07 10:10 | BH.SGPN.GN ---
Behaviors/Verbalizations/Mental Status: [] Eye contact is good. Motor activity is appropriate. Appearance is casual. Speech is Appropriate. Mood is depressed. Affect is flat. Thoughts are linear and logical. Client Response/Progress/Benefit: [] Pt was an active participant in group discussions and activity. Attentive during psychoeducation and provided insight into obstacles in the way of mental wellness. Pt shared her picture depicting her current mental health reality with the group. She described her current reality as being surrounded by cloudy skies in a broken boat at sea. States she is sad and notices other people watching her and rooting for her to fail. Pt's desired reality places her in a boat that is not broken and feeling like she has more control over her life. Benefited from taking look at current mental health state and obstacles for progress. Will continue in IOP to increase healthy coping, prevent decompensation, and to stabilize mood. Narrative Note: []
--- NOTE | 2021-02-07 11:10 | BH.SGPN.GN ---
Behaviors/Verbalizations/Mental Status: []Client alert and oriented, casually dressed and groomed. Eye contact good. Motor activity appropriate. Speech within normal limits. Affect constricted, mood dysthymic. Thoughts linear, logical, no signs of hallucinations or delusions. Client Response/Progress/Benefit: []Client was an active participant in group discussion and activity. Engaged during activity and occasionally provided ideas on how to cope with internal barriers that keep clients stuck from moving towards goals. Barriers identified by client included: dissociation, eating disorder, and fear of failure. Strategies identified for overcoming these barriers included: opposite action, reaching out for support, thought challenging, and grounding. Client left before coming up with a goal to work on for the week. Benefited from group by identifying obstacles and solutions to desired reality. Client?s attendance continues to be variable and may hinder her ability to make progress in IOP. Will continue tx to prevent decompensation, gain healthy support, and set boundaries. Narrative Note: []
--- NOTE | 2021-02-09 09:02 | BH.SGPN.GN ---
Behaviors/Verbalizations/Mental Status: []Client alert and oriented, casually dressed and groomed. Eye contact good. Motor activity appropriate. Speech within normal limits. Affect congruent, mood euthymic. Thoughts linear, logical, no signs of hallucinations or delusions. Reviewed client?s symptom tracker, no risk for suicidal ideation, plan, or intent as of 02/09/21. Client's scores for SI were within her baseline. Client Response/Progress/Benefit: []Client responded well to session, providing support and ideas to cope. Client reports feeling anxious in a good way this morning. Client shared many positives this morning as client has been working on her goal of increased self-care. Client reports practicing gratitude, grounding, opposite action, and thought challenging. Client has been going to the gym and taking better care of her physical health through vitamins and drinking more water. Client shared she continues to struggle with setting boundaries with toxic people as client wants comfort in the things I know. Appeared to benefit from reflecting on positive changes. Client is making progress, but she has yet to see mood stability for an extended period of time. Will continue IOP tx to increase consistency of coping skill application and mood stability. Narrative Note: []
--- NOTE | 2021-02-09 11:20 | BH.SGPN.GN ---
Behaviors/Verbalizations/Mental Status: []Client alert and oriented, casual dress, hygiene appropriate. Eye contact fair. Motor activity appropriate. Speech within normal limits. Affect constricted, mood anxious and dysthymic. Thoughts linear, logical, no signs of hallucinations or delusions. Client Response/Progress/Benefit: []Client responded well to session, connecting with peers and receptive to supportive statements. Client engaged in the boundary self-assessment activity and attentive during psychoeducation on the different boundary styles. Client reported she is moving towards having healthy boundaries but with certain people reverts back to porous boundaries. Client stated it is most difficult for her to step away from relationships despite knowing she is giving more than she is receiving. Client participated in brainstorming strategies to improve boundary setting. Client to continue IOP tx to improve daily functioning, continue working on following through with set boundaries and prevent decompensation.
--- NOTE | 2021-02-09 11:53 | PCM.BH.PN ---
Progress Note Progress Note: History of Present Illness/Interim History: [] The patient is a 20-year-old single female who is seen in follow-up at the [facility] behavioral health IOP program. I last saw the patient 2 weeks ago and at that time she was started on Latuda 40 mg daily with dinner. She is tolerating Latuda well. Her mood is much better and she feels much more stable. She is functioning better and is much more motivated. She has much less fatigue during the day and is doing okay at work. Her sleep is up to 8 hours a night. She still has some anxiety that has not improved as much as her mood has. She states that she feels the Latuda has also helped and decreased her tendency to overeat or lose control over her eating. She is working out regularly now and feels good. She denies any methamphetamine use since prior to last visit. She used alcohol only about 2 days a week now but when she does use alcohol socially she does drink a lot up to 10 drinks a night. She denies any blackouts. She still is hanging out with her ex-girlfriend but states that she is setting firm boundaries and that her plan is to stop seeing her ex-girlfriend. She denies passive thoughts of , suicidal or homicidal ideation, symptoms of christiano, hallucinations or delusions. Current Psychiatric Medications: [] Zoloft was discontinued 2 weeks ago. Latuda 40 mg at dinner with food daily (x2 weeks). Mental Status Examination: [] Patient is a 20-year-old female who is seen wearing a mask due to the pandemic and is casually dressed and groomed with good hygiene. Eye contact is good and speech is normal rate and rhythm and fluent without pressure. Mood is euthymic. Affect is full and normal. Thought process is goal-directed and organized. Thought content: There is no evidence of thoughts of , suicidal or homicidal ideation, hallucinations or delusions. Impulsivity is moderate to high. Insight is limited. Judgment is limited. Diagnoses: [] [place] I: [] Bipolar, NOS (F 31.9); generalized anxiety disorder; PTSD; history of bulimia nervosa; polysubstance abuse disorders (THC, methamphetamine, alcohol). [place] II: [] Strong cluster B traits, rule out borderline personality disorder [place] III: [] Negative [place] IV:[]] Primary support, school, work issues Plan: [] The patient will continue the IOP program at the [facility] as the structure, support, education, individual and group therapy will hopefully prevent worsening of the patient's symptoms which might require hospitalization. She felt safe during the interview and if it anytime she does not feel safe she will let us know or go to the emergency room. The risks, options, possible complications and side effects of the patient's medications were discussed with the patient and she understands and accepts these. She agrees that we will watch for any weight gain and she will continue to exercise and eat healthy. She agrees to increase the Latuda to 60 mg p.o. daily with food when she gets off work in the morning. Prescription was sent in for this. The patient is still working third shift and gets off early in the morning and then goes to sleep. I will see the patient in follow-up in 2 weeks.
--- NOTE | 2021-02-09 13:14 | BH.TPR ---
Treatment Plan Review Date of Admission:: 01/05/21 Date of Treatment Plan Review:: 02/09/21 Admitting Diagnoses:: F33.2 Major depressive disorder, recurrent, severe without psychosis; cannot rule out bipolar disorder, NOS; generalized anxiety disorder; PTSD; bulimia nervosa; polysubstance abuse (THC, methamphetamine, alcohol) Current Diagnoses:: F 31.9 Bipolar, NOS ; generalized anxiety disorder; PTSD; history of bulimia nervosa; polysubstance abuse disorders (THC, methamphetamine, alcohol). Patient's Response to Treatment:: Pt has inconsistent attendance throughout IOP. When pt does attend she often does engage AEB providing input. Pt has good insight but struggles with following through on use of healthy coping strategies. Status of Current Problems and Symptoms: Problems continued. Change in diagnosis from MDD to Bipolar NOS. Overall symptom reduction is 22%. Problem #1 Problem Name:: Depression Status of Goals:: Obj 1 - Continued work needed. Pt is able to identify at least 2-3 healthy coping skills but struggles with implementing healthy coping skills on a consistent basis. Obj 2 - Continued work needed. Per pt's DSM 5 symptom tracker depressive symptoms have reduced by 45%. Team Recommendations:: With change in diagnosis to Bipolar NOS the focus will be on mood stability. Focus will be on implementing healthy coping skills on a consistent basis. Replacing substance use with healthy coping skills. Problem #2 Problem Name:: Anxiety Status of Goals:: Obj 1 - Continued work needed. Pt is able to identify at least 2-3 anxiety reduction strategies but struggles with implementing healthy coping skills on a consistent basis. Obj 2 - Continued work needed. reduction of anxious symptoms by 25% per DSM 5 symptom tracker. Continued work needed. Team Recommendations:: Team recommends continued work on goals and objectives. Focus on helping pt increase consistent application of healthy skills.
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
--- NOTE | 2021-02-10 10:15 | BH.SGPN.GN ---
Behaviors/Verbalizations/Mental Status: []Client alert and oriented, causally dressed and groomed. Eye contact good. Motor activity appropriate. Speech within normal limits. Affect constricted, mood dysthymic. Thoughts linear, logical, no signs of hallucinations or delusions. Client Response/Progress/Benefit: []Client passive participant AEB client not providing input, however did appear to listen attentively to others. Group gave examples of unhealthy coping skills. Listened as group identified the following as reasons unhealthy skills are used: instant gratification, easy, escape reality, survival, feels good, learned behavior and habitual. Client participated in the group activity and connected that a healthy foundation of coping skills is composed of healthy internal and external coping skills. Client seemed to benefit from increased awareness of the importance of increasing healthy coping skills and consequences of utilizing unhealthy coping skills. Progress variable. Continues to struggle with surrounding self with toxic people. Will continue IOP tx to prevent decompensation, stabilize moods, and follow through with healthy boundaries. Narrative Note: []
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
--- NOTE | 2021-02-15 10:10 | BH.SGPN.GN ---
Behaviors/Verbalizations/Mental Status: [] Eye contact is good. Motor activity is appropriate. Appearance is disheveled. Speech is Appropriate. Mood is depressed. Affect is congruent. Thoughts are linear and logical. No evidence of psychosis. Client Response/Progress/Benefit: [] Pt was an active participant in group discussion and activity. Pt and peers worked together and provided insight on the benefits to goal-setting as well as the barriers to setting and obtaining goals. Attentive during psychoeducation on SMART (Specific, Measurable, Achievable, Realistic, Timely)goals. Did well in activity with peers and was able to relate the activity to goal setting for herself. Benefited from increase insight into effective ways to set goals. Will continue in IOP to maintain safety, increase support, and increase healthy skills. Narrative Note: []
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
--- NOTE | 2021-02-18 10:05 | BH.SGPN.GN ---
Behaviors/Verbalizations/Mental Status: []Client alert and oriented, casually dressed and appropriately groomed. Eye contact fair to good. Motor activity appropriate. Speech within normal limits, limited input provided. Affect congruent, mood depressed, Thoughts linear, logical, no signs of hallucinations or delusions. Client Response/Progress/Benefit: []Client receptive of session, remained a mostly passive participant but providing some limited input and taking notes at times throughout. Client agreed with the quote and shared agreement that communicating can be an illusion when we assume the other person knows what?s upsetting us without actually telling them. Group identified potential barriers to healthy communication as: anxiety, fear of other?s reactions, making assumptions, shutting down, and fear of being vulnerable. Noted a personal communication barrier as shutting down or becoming emotionally heated when trying to communicate. Client remained attentive and contributed during psychoeducation on the four communication styles, providing input and examples throughout. Benefited from increased insight regarding own communication style and impacts this has on overall mental health. Engagement continues to be variable as client emotions are often impacted by external forces which at times contribute to being distracted by own thoughts. Client will continue IOP to promote the use of healthy coping skills, improve boundaries and mood management, and prevent decompensation. Narrative Note: []
--- NOTE | 2021-02-18 11:10 | BH.SGPN.GN ---
Behaviors/Verbalizations/Mental Status: []Client alert and oriented, neatly dressed and groomed. Eye contact good. Motor activity appropriate. Speech within normal limits. Affect constricted, mood anxious and depressed. Thoughts linear, logical, no signs of hallucinations or delusions. Client Response/Progress/Benefit: []Client less engaged participant compared to previous group session AEB providing limited contributions during group discussions. Client reported she is mostly a passive communicator. Client reported this communication style causes negative consequences on her relationships and mental health. Client stated she withdraws from others and gives up easily to what others want. Attentive during psychoeducation about DEAR MAN (Describe, Express, Assert, Reinforce, Mindfulness, Appear confident, Negotiate) interpersonal communication skill. Client identified her communication goal is to focus on the skill of mindfulness by making sure during conversations with grandma she stays on topic versus bringing up the past. Client seemed to benefit from increased insight into how her communication style impacts her mental health and relationships. Client progress variable. Client reports one day feeling less anxious and depressed but the next day very emotional and expressing doing bad. Client continues to be in contact with ex whom contributes to significant distress to client. Will continue IOP tx to increase consistent application of skills, continue to work on following through with set boundaries and prevent decompensation.
--- NOTE | 2021-02-22 09:05 | BH.SGPN.GN ---
Behaviors/Verbalizations/Mental Status: []Client alert and oriented, neatly dressed and groomed. Eye contact good. Motor activity appropriate. Speech within normal limits. Affect constricted, mood euthymic. Thoughts linear, logical, no signs of hallucinations or delusions. Reviewed client?s symptom tracker. Client scored herself slightly above her baseline for suicidal ideations. Client denied to therapist after group that she had no active SI, plan, or intent. Future oriented. Client Response/Progress/Benefit: []Client responded well to session, attentive and participating. Client reports feeling tired this morning and shared that she is currently feeling stressed about not having her car as it is getting fixed. Client stated driving and listening to music are two of her biggest coping skills, so this makes client anxious. Client did identify many positives though, sharing she continues to go to the gym and has been using thought challenging. Client continues to have ongoing interpersonal relationship triggers and stressors. Client encouraged to talk with her grandmother about her needs and feelings. Appeared to benefit from connecting with peers. Progress noted in client's increased physical activity, however client continues to struggle with mood instability. Will contiue IOP tx to prevent decompensation, improve emotional regulation, and gain healthy supports. Narrative Note: []
--- NOTE | 2021-02-22 10:10 | BH.SGPN.GN ---
Behaviors/Verbalizations/Mental Status: [] Eye contact is good. Motor activity is appropriate. Appearance is disheveled. Speech is Appropriate. Mood is depressed. Affect is flat. Thoughts are linear and logical. No evidence of psychosis. Client Response/Progress/Benefit: [] Pt was an active participant in group discussion and activity. Attentive during psychoeducation. Along with peers he provided insight and feedback on the definition of stress which included; negative reaction to changes, chaos, racing thoughts, physical pains, dissociation, and exhaustion. Also provided feedback on the benefits of stress which included; motivation, improved mood, helps us complete goals, and can lead to accomplishments. Completed stress jar with primary stressors being restraining order, MH, dissociation, and guilt. Benefited from group by identifying distress vs eustress as well as current stressors and their impact. Will continue in IOP to prevent decompensation, maintain safety, and increase healthy coping. Narrative Note: []
--- NOTE | 2021-02-22 11:18 | BH.SGPN.GN ---
Behaviors/Verbalizations/Mental Status: []Client alert and oriented, casually dressed and groomed. Eye contact good. Motor activity WNL. Speech within normal limits. Affect congruent, mood dysthymic. Thoughts linear, logical, no signs of hallucinations or delusions. Client Response/Progress/Benefit: []Client did well to remain engaged in session AEB listening attentively to others, providing input during session, and taking notes throughout. This is improvement as client often struggles with being distracted by own thoughts and external stressors. Client remained an active participant during discussion about the 4 A's of managing stress and reflected with the group on the various benefits of each. Client stated she can connect with the need to practice acceptance of her current stressors as she often avoids them and ends up suffering more as a result. Expressed wanting to begin addressing stressor of the toxic people in her life by practicing avoiding unnecessary and unwanted interactions via filing a restraining order. Shared this is anxiety provoking but she knows is ultimately going to be beneficial for her. Seemed to benefit from increased awareness of the impact of stress on mental health and relationships, as well as increasing repertoire of stress management strategies. Client is to continue treatment to further promote healthy change behaviors and use of emotion regulation skills, as well as improving boundaries, and preventing decompensation. Narrative Note: []
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
--- NOTE | 2021-02-24 10:05 | BH.SGPN.GN ---
Behaviors/Verbalizations/Mental Status: []Client alert and oriented, disheveled appearance. Eye contact poor. Motor activity appropriate. Speech within normal limits. Affect constricted, mood depressed. Thoughts linear, logical, no signs of hallucinations or delusions. Client Response/Progress/Benefit: []Pt was a passive participant in group discussion and psychoeducation. Pt reported struggling with worsening depression today, so she was more withdrawn in group. Group was primarily educational and introduced and gave examples of the 10 cognitive distortions. Pt provided some examples of personal experiences for certain cognitive distortions. Pt connected with all or nothing thinking and overgeneralizing. Benefited from education and increased awareness of cognitive distortions and role that they play in negative thoughts and emotions. Pt was reporting increased suicidal ideations today and will be assessed by IOP staff. Narrative Note: []
--- NOTE | 2021-02-24 14:13 | BH.MDN_ITS ---
Multi-Disciplinary Note - Note 30-min Individual Time Started:: 09:15 Date: 02/24/21 Purpose of session/treatment goals addressed:: To assess client's suicidal ideations and risk factors. Another goal was to identify a plan of care. Eye Contact:: Fair Motor Activity:: Slowed Appearance:: Disheveled Speech:: Soft Mood:: Dysthymic Affect:: Flat - tearful Thoughts:: Other - hopelessness and ruminations., No evidence of hallucinations/delusions noted Staff Interventions:: Therapist completed a risk assessment by asking client questions and exploring intent. Therapist felt client was an immediate risk to self, and therefore needed to be taken to the ER. Therapist provided emotional support and discussed situation with IOP director. IOP director also agreeable with plan to take client to ER. Client Response:: Client entered session appearing depressed, fatigued, and tearful. Client stated that she continues to feel very depressed and hopeless. Client has not been taking her medications, which could also be contributing to her worsening symptoms and increased SI. Client shared she had to reach out to her ex-girlfriend because my suicidal thoughts almost killed me on Sunday. Client reports conflict with grandma, not having her car, and losing her phone all as triggers for her worsening depressed and increased SI. Client stated she also does not want to rely on her ex-girlfriend, but client does not feel like she has any other supports. Client reports feeling like is a peaceful choice and stated this is the most suicidal she has been since her suicide attempt a few years ago. Client and therapist discussed hospitalization. Client did not want to be hospitalized at first, but then came around to the idea. Client agreeable to [facility] staff taking her to the ER to be assessed and transferred to a psychiatric unit. Risks/Concerns:: Client completed the daily symptom tracker and scored herself a 4/5 for thoughts of suicide and 4/5 for risk for suicide. Client admits to a adriana f-aborted suicide attempt on Sunday evening. Client had a bottle of pills in her hand with the intent to kill herself, but called her ex-girlfriend instead. Client endorses suicidal ideations with thoughts about overdosing today and did not think she could keep herself safe. Access to stockpiles of medication at home, limited support, and recent triggers with family, car issues, and chronic mental health. Client stated that she has been obsessively thinking about how peaceful would be. Progress Toward Goals/Plan:: Due to presenting suicidal ideations with a recent self-aborted attempt and inability to contract for safety, it was determined that client was in need of higher level of care to maintain safety. Client voluntarily went to the [facility] Emergency Room to be further evaluated for her suicidal ideations. Client will be discharged from [facility] at this time due to needing a higher level of care. Client was walked over to the ER by [facility] staff. Time Stopped:: 09:40
--- NOTE | 2021-02-24 14:54 | BH.DS_ITS ---
Discharge Summary - Demographics Date of Admission:: 01/05/21 Discharge Date: 02/24/21 Presenting Problems at Admission:: Client is a 20 year-old female with a history of bipolar NOS, PTSD, and polysubstance use. Client was self-referred to [facility] due to worsening anxiety, depression, and fleeting suicidal ideations. At admission, client reported worsening symptoms over the past two months with the primary trigger being a toxic relationship. Client endorsed poor sleep, erratic appetite, lack of motivation, lack of energy, hopelessness, worthlessness, poor concentration, isolative behaviors, and avoidance. Client also endorsed racing thoughts. Client admitted to using meth and marijuana on a frequent basis prior to starting IOP. Client's symptoms were, and continue to, impact her overall functioning. Discharge Diagnoses:: F 31.9 Bipolar, NOS ; generalized anxiety disorder; PTSD; history of bulimia nervosa; polysubstance abuse disorders (THC, methamphetamine, alcohol). Reason for Discharge:: Due to presenting suicidal ideations with a recent self- aborted attempt and inability to contract for safety, it was determined that client was in need of higher level of care to maintain safety. Client voluntarily went to the [facility] Emergency Room to be further evaluated for her suicidal ideations. Client will be discharged from [facility] at this time due to needing a higher level of care. Client was walked over to the ER by [facility] staff. - Treatment Progress During Treatment & Response: Client made some progress during [facility] tx, see tx plan review dated 02/09/21, however, client struggled to see prolonged mood stability. Client was a supportive group member and had very good insight. Client did not always follow through with her goals, but she had made some po sitive changes. Client had variable attendance and throughout the program client struggled with interpersonal relationship issues. Client's symptoms appeared to decompensate this week due to not having her car, conflict with her grandma, a relationship trigger, and medication noncompliance. Issues Still to be Addressed:: mood instability, unhealthy coping skill use, toxic relationships, substance use, negative thinking, and limited support. Discharge Recommendations/Instructions:: Client was encouraged to follow recommendations of inpatient treatment team. Client was informed she can return to [facility] post inpatient discharge for continuity of care, should client wish. Discharge Handout: Complete Discharge Handout with client on aftercare options and continuity of care.
== END 2021-02-24 14:00 | disposition short-term general hospital (02) ==
LOC: BHIOP 09:00
PROVIDERS: PCP Pediatrics; Referring Provider Psychiatry & Neurology Psychiatry; Visit Provider Psychiatry & Neurology Psychiatry
DX: F31.9 Bipolar disorder, unspecified (principal); F41.1 Generalized anxiety disorder; F43.10 Post-traumatic stress disorder, unspecified; F10.10 Alcohol abuse, uncomplicated; F11.90 Opioid use, unspecified, uncomplicated
CPT/HCPCS: 99213; H0035; H2012; H2020; 90832

== ENCOUNTER 2021-02-02 22:04 | Emergency (ER) | payer MEDICAID, SELFPAY ==
[2021-02-02 22:05] VITALS: BP 123/70; PULSE 90; RESP 18; TEMP 36.5; O2SAT 97; BMI 37.0
--- NOTE | 2021-02-02 22:29 | RAD_ITS ---
STUDY: X-RAY - RIGHT KNEE REASON FOR EXAM: Female, 20 years old. injury TECHNIQUE: For view(s) of the knee. COMPARISON: None. FINDINGS: Normal visualized distal femur. Normal visualized proximal tibia and fibula. Normal proximal tibiofibular articulation. There is no demonstrated fracture. Normal medial femorotibial compartment. Normal lateral femorotibial compartment. Normal patellofemoral articulation. There is no demonstrated joint effusion. The soft tissue structures are unremarkable. RAD/Knee 4 or More Views IMPRESSION: Normal x-ray examination of the knee. Electronically Signed: Hector Molina MD at 23:03 EDT , Service support ,
--- NOTE | 2021-02-02 23:09 | ED.DCSUM_ITS ---
- ER Visit Summary Date of Service: 02/02/21 Chief Complaint: Right knee pain History of Present Illness: The patient is a 20 F presenting after right knee injury. Patient states she twisted her right knee and nearly fell today. She did not completely fall to the ground. She complains of persistent right knee pain. She tried ibuprofen at home. She denies other complaints. Physical Examination: Vitals are stable. Patient is afebrile. Alert no acute distress. HEENT exam is unremarkable. Neck is nontender Lungs are clear and equal bilaterally. Heart is regular rate and rhythm. Extremities right medial knee tenderness with active full range of motion. Extensor mechanism intact. Neurovascularly intact distally. Skin is warm and dry. No focal neurologic deficit. Remainder of exam is unremarkable. Emergency Department Course and Treatment: Right knee x-ray read by myself and radiology shows normal x-ray examination of the knee. Patient was given an Horacio wrap at her request. She declined crutches. Advised to ice, elevate and use NSAIDs for pain. Advised to follow-up with primary care physician. Advised to return to the ED for worsening complaints. Disposition: Discharge home Impression: Right knee sprain This note was generated with [employer] dictation software. It may contain incorrect words, spelling, and punctuation that were not noted in review of the chart prior to signing ED Disposition - Plan for ED Patient: Instructions: ED Knee Sprain Referrals: Tiffany Wells MD [Primary Care Provider] -
--- NOTE | 2021-02-02 23:18 | ED.DEP ---
ED Disposition - Plan for ED Patient: Instructions: ED Knee Sprain Referrals: Tiffany Wells MD [Primary Care Provider] -
== END 2021-02-02 23:38 | disposition home or self-care (01) ==
PROVIDERS: Emergency Provider Emergency Medicine; PCP Pediatrics
DX: S83.91XA Sprain of unspecified site of right knee, initial encounter (principal); J45.909 Unspecified asthma, uncomplicated; Z72.0 Tobacco use; Z79.51 Long term (current) use of inhaled steroids; X50.1XXA Overexertion from prolonged static or awkward postures, initial encounter; Y93.89 Activity, other specified; Y92.89 Other specified places as the place of occurrence of the external cause; Y99.8 Other external cause status
CPT/HCPCS: 73564; 99282

== ENCOUNTER 2021-02-24 11:36 | Emergency (ER) | payer MEDICAID, SELFPAY ==
[2021-02-24 11:37] VITALS: BP 150/86; PULSE 79; RESP 18; TEMP 35.8; O2SAT 98; BMI 36.4
[2021-02-24 13:56] LABS: Absolute Lymphocyte Count 2.72 X10^3/uL (0.83-4.51); Absolute Neutrophil Count 5.2 X10^3/uL (2.0-7.7); Basophil# 0.05 X10^3/uL; Basophil% 0.5 % (0-1); Eosinophil# 0.45 X10^3/uL; Eosinophils% 4.7 % (0-5); Hematocrit 44.1 % (37-47); Hemoglobin 14.5 g/dL (12.0-15.0); Lymphocyte # 2.72 X10^3/ul (0.83-4.51); Lymphocyte % 28.2 % (19-41); Mean Corp Hgb Conc 32.9 g/dL (32-36); Mean Corpuscular Hgb 30.3 pg (27.0-32.0); Mean Corpuscular Volume 92.3 fL (81-99); Mean Platelet Vol. 9.6 fl (6.2-12.0); Monocyte# 1.15 X10^3/uL; Monocyte% 11.9 % (0-10); NRBC Flagged by Analyzer 0 % (0-5); Neutrophil # 5.22 X10^3/uL (2.7-7.7); Neutrophil % 54.3 % (47-70); Platelet Count 332 K/mm3 (150-450); RBC Distribution Width CV 12.9 % (11.6-14.6); RBC Distribution Width SD 43.8 fl (35.1-43.9); Red Blood Count 4.78 M/mm3 (4.2-5.4); White Blood Count 9.6 K/mm3 (4.4-11.0)
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
[2021-02-24 14:07] LABS: Amphetamine Urine VISTA NEGATIVE (<1000 ng/mL); Barbiturate Urine VISTA NEGATIVE (< 200 ng/mL); Benzodiazepine Urine VISTA NEGATIVE (< 200 ng/mL); Cocaine Urine VISTA NEGATIVE (< 300 ng/mL); Ecstacy Urine VISTA NEGATIVE (< 500 ng/mL); Methadone Urine VISTA NEGATIVE (< 300 ng/mL); PCP Urine VISTA NEGATIVE (< 25 ng/mL); THC Urine VISTA POSITIVE (< 50 ng/mL); Vista UDS pH Range 7
[2021-02-24 14:11] LABS: ALB/GLOB Ratio 0.9 RATIO (0.9-2.4); AST(SGOT) 20 U/L (15-37); Alanine Aminotransfer ALT/SGPT 28 U/L (13-56); Albumin, Serum 3.6 g/dL (3.2-5.0); Alkaline Phosphatase 63 U/L (45-117); Anion Gap 4 (5-15); BUN 9 mg/dL (7-18); BUN/Creat Ratio 10.5 RATIO (10-20); Calcium,Total 8.9 mg/dL (8.5-10.1); Chloride 107 mmol/L (98-107); Creatinine, Serum 0.86 mg/dL (0.55-1.02); EST Glomerular Filtration Rate 89 mL/min (>60); Est Glom Filt Rate - Afr Amer 108 mL/min (>60); Estimated Creatinine Clearance 109.05 ml/min; Globulin 3.8 g/dL (2.2-4.2); Glucose 85 mg/dL (74-106); Potassium 3.9 mmol/L (3.5-5.1); Protein, Total 7.4 g/dL (6.4-8.2); Sodium Level 138 mmol/L (136-145)
--- NOTE | 2021-02-24 14:11 | EKG12_ITS ---
Test Reason : MENTAL CLEARANCE Blood Pressure : / mmHG Vent. Rate : 066 BPM Atrial Rate : 066 BPM P-R Int : 124 ms QRS Dur : 092 ms QT Int : 388 ms P-R-T Axes : 067 069 060 degrees QTc Int : 406 ms Normal sinus rhythm with sinus arrhythmia Normal ECG Confirmed by NORMA HOANG, OWEN ([id number]), editor farm journal NOAH WEINER ([id number]) on 02/28/2021 12:19:04 PM Referred By: YANET Confirmed By:OWEN GREEN MD
[2021-02-24 14:29] LABS: Internal QC Validated? YES +Cl - CLEAR BKGD; Pregnancy, Serum, hCG Quali. NEGATIVE Negative
[2021-02-24 14:43] VITALS: RESP 16
[2021-02-24] MEDS: LORazepam 0.5 MG Tablet PO (14:50)
[2021-02-24 14:58] LABS: Acetaminophen (Tylenol) Level < 2.0 ug/mL (10.0-30.0); Salicylate 2.3 mg/dL (2.8-20.0)
[2021-02-24 15:00] VITALS: BP 116/47; PULSE 71; RESP 14; O2SAT 98
--- NOTE | 2021-02-24 15:17 | EX.ED.DYSGE1 ---
HPI History of Present Illness Chief Complaint: Suicidal Narrative Narrative: Patient is a 20-year-old female with history of bipolar disorder, bulimia, anxiety, polysubstance abuse, PTSD and depression presenting with suicidal ideations. Patient states she has been having worsening suicidal thoughts. She is thinking of overdosing on her Latuda. She has not done anything to check cholesterol. She denies any homicidal suicidal ideations. She denies any hallucinations. No other complaints at this time. Notes that she is feeling achy but states is because she has been feeling so anxious. [facility] Medical History (Updated 02/24/21 @ 18:[address] Lita Morales, DO) Bipolar disorder Bulimia nervosa Generalized anxiety disorder Major depressive disorder, recurrent severe without psychotic features Polysubstance abuse PTSD (post-traumatic stress disorder) Home Medications albuterol sulfate 1 puff INHALATION Q6H PRN PRN 11/30/19 [History Last Taken Unknown] lurasidone 60 mg PO DAILY 30 Days #30 tablet 02/09/21 [Rx Last Taken Unknown] Allergy/AdvReac Type Severity Reaction Status Date / Time cat dander Allergy Other Verified 02/24/21 11:50 dog dander Allergy Other Verified 02/24/21 11:50 Social History Smoking Status: Current every day smoker ROS ROS ED Constitutional Constitutional ED: Reports body ache(s); Denies anorexia Eyes Eyes: Denies blurry vision ENT ENT ED: Denies rhinorrhea or sore throat Cardiovascular Cardiovascular: Denies chest pain Respiratory/Chest Respiratory/Chest: Denies cough or dyspnea Gastrointestinal Gastrointestinal: Denies abdominal pain or nausea Genitourinary Genitourinary ED: Denies burning urination Musculoskeletal Musculoskeletal: Denies back pain or difficulty walking Integumentary Denies rash or sores Neurologic Neurologic: Denies headache(s) or numbness Psychiatric Psychiatric: Reports anxiety, suicidal ideation and suicidal thoughts; Denies homicidal ideation, tactile hallucinations or visual hallucinations EXAM Physical Exam Const Vital Signs: 02/24/21 11:37 02/24/21 14:43 02/24/21 15:00 Temperature 96.5 F L Temperature Source Temporal Pulse Rate 79 71 Respiratory Rate 18 16 14 Blood Pressure 150/86 H 116/47 L Blood Pressure Mean 107 70 Pulse Ox 98 98 Oxygen Delivery Method Room Air Room Air 02/24/21 16:00 02/24/21 17:00 Temperature Temperature Source Pulse Rate Respiratory Rate 14 18 Blood Pressure Blood Pressure Mean Pulse Ox Oxygen Delivery Method Positive well nourished and well developed General Appearance ED: active and well developed HEENT Reports normocephalic atraumatic Face and Sinus: normal facial exam Nose: external nose normal External Ear: external ears normal Mouth ED: Yes moist mucous membranes normal Eyes General Eye ED: Yes normal appearance of both eyes EOM: Negative for EOM abnormal Neck General: normal visual inspection Chest Wall inspection of chest normal Resp normal respiratory effort and normal air movement Effort and Inspection: able to speak in complete sentences Cardio regular rate and regular rhythm GI normal to inspection, nondistended, normoactive bowel sounds Back/Spine normal ROM Extremity normal to inspection and full ROM Neuro oriented x3, CN's II-XII intact bilaterally, moves all extremities and no focal motor deficits Psych mental status grossly normal and cooperative Thought Content: suicidality and No hallucination(s) Skin no rashes or lesions noted General Skin Exam: no breakdown MDM MDM Lab Data Labs: Laboratory Results - last 24 hr 02/24/21 02/24/21 02/24/21 13:40 13:40 13:40 WBC 9.6 RBC 4.78 Hgb 14.5 Hct 44.1 MCV 92.3 MCH 30.3 MCHC 32.9 RDW Std Deviation 43.8 RDW Coeff of Blair 12.9 Plt Count 332 MPV 9.6 Immature Gran % (Auto) 0.400 Neut % (Auto) 54.3 Lymph % (Auto) 28.2 Larimer % (Auto) 11.9 H Eos % (Auto) 4.7 Baso % (Auto) 0.5 Absolute Neuts (auto) 5.2 Absolute Lymphs (auto) 2.72 Nucleated RBC % 0 Sodium 138 Potassium 3.9 Chloride 107 Carbon Dioxide 27.0 Anion Gap 4 L BUN 9 Creatinine 0.86 Estim Creat Clear Calc 109.05 Est GFR (MDRD) Af Amer 108 Est GFR (MDRD) Non-Af 89 BUN/Creatinine Ratio 10.5 Glucose 85 Calcium 8.9 Total Bilirubin 0.40 AST 20 ALT 28 Alkaline Phosphatase 63 Total Protein 7.4 Albumin 3.6 Globulin 3.8 Albumin/Globulin Ratio 0.9 Serum , Qual Salicylates 2.3 L Urine Opiates Screen Urine Methadone Screen Acetaminophen < 2.0 L Ur Barbiturates Screen Ur Phencyclidine Scrn Ur Amphetamines Screen U Methamphetamin-MDMA U Benzodiazepines Scrn Urine Cocaine Screen U Cannabinoids Screen Ur Drug Screen Comment Ethyl Alcohol 9.0 02/24/21 02/24/21 13:40 13:40 WBC RBC Hgb Hct MCV MCH MCHC RDW Std Deviation RDW Coeff of Blair Plt Count MPV Immature Gran % (Auto) Neut % (Auto) Lymph % (Auto) Larimer % (Auto) Eos % (Auto) Baso % (Auto) Absolute Neuts (auto) Absolute Lymphs (auto) Nucleated RBC % Sodium Potassium Chloride Carbon Dioxide Anion Gap BUN Creatinine Estim Creat Clear Calc Est GFR (MDRD) Af Amer Est GFR (MDRD) Non-Af BUN/Creatinine Ratio Glucose Calcium Total Bilirubin AST ALT Alkaline Phosphatase Total Protein Albumin Globulin Albumin/Globulin Ratio Serum , Qual NEGATIVE Salicylates Urine Opiates Screen NEGATIVE Urine Methadone Screen NEGATIVE Acetaminophen Ur Barbiturates Screen NEGATIVE Ur Phencyclidine Scrn NEGATIVE Ur Amphetamines Screen NEGATIVE U Methamphetamin-MDMA NEGATIVE U Benzodiazepines Scrn NEGATIVE Urine Cocaine Screen NEGATIVE U Cannabinoids Screen POSITIVE H Ur Drug Screen Comment Ethyl Alcohol Rhythm Strip Rhythm Strip: Sinus Rhythm Rate: 66 Ectopy: None EKG Initial EKG: Attestation: I personally reviewed and interpreted this EKG as follows: Interpretation: Sinus Rhythm Comments: Normal sinus rhythm at a rate of 66 Normal axis Normal intervals Normal ST segments Treatment and Re-Evaluation Comments:: Patient evaluated for suicidal idealizations. She has a plan. She did attempt anything. She is medically cleared. I do think she requires inpatient psychiatric care. Patient is agreeable with this. Patient is given a dose of oral Ativan for anxiety in the ER. Discharge Plan Triage Chief Complaint: Suicidal ED Provider: Lita Morales Dx/Rx/DC Orders Clinical Impression: Depression with suicidal ideation Prescriptions: No Action albuterol sulfate 1 INHALER inhaler 1 puff inhalation Q6H PRN PRN (Reason: Wheezing) RF: 0 lurasidone 60 MG tablet 60 mg PO DAILY 30 Days Qty: 30 RF: 1 Primary Care Provider: Tiffany Wells Referrals: Tiffany Wells MD [Primary Care Provider] - Disposition Disposition: Psychiatric Hospital or Unit Discharge Location: [facility] Discharge Date/Time: 02/24/21 17:08
--- NOTE | 2021-02-24 15:38 | CM.ED ---
SOCIAL WORK Emergency Department [facility] program initiated contact with Rhina at [facility] in [place], [place]. In conversation with patient, this is a hospital patient would be willing to go to. Called [facility] intake number at [phone]. Spoke with Jeanette of impending referral. Confirmed what is needed in referral packet, as well as the fax number of [phone]. Updated Dr. Morales as to what [facility] requires for referral. All needed information for packet completed. Faxed referral packet to confirmed fax. Called [facility] and spoke with Kailyn in the intake department. Informed of impending fax and provided this marketing underwriter's contact information to call when determination is made. Plan: Pending inpatient psychiatric admission. Await response from [facility]. . -ROSIO Zhao, FERN CUTTER
[2021-02-24 16:00] VITALS: RESP 14
--- NOTE | 2021-02-24 16:36 | CM.ED ---
SOCIAL WORK Emergency Department Updated patient and grandmother, who remains in the room with the patient that all referral information has been sent off to [facility]. Grandmother to get patient some clothing. Received call from Rhina in admissions at [facility]. Patient is accepted under Dr. Vilchis. Faxed demographic sheet to confirmed fax number. Met with patient to update. Patient reports has been trying to sleep but has many thoughts racing, like several different televisions in her head. Patient teary eyed. Reassurance offered, as well as encouraged adherence to medications prescribed while at the hospital and after discharge. ED public information coordinator arranged transport with [facility], with estimated picker/puller time of 1700. Called [facility] and spoke with Kailyn. Updated to time of transport and faxed pink slip to confirmed fax number. Provided ED staff with number for report to [facility]. Updated patient and grandmother. Emotional support offered to the patient. No other services requested or indicated. Plan: Admission to [facility] for inpatient psychiatric treatment. -ROSIO Zhao, ELECTRICAL ENGINEER
[2021-02-24 17:00] VITALS: RESP 18
--- NOTE | 2021-02-24 17:07 | ED.RN ---
attempted to call [facility] to give report. No answer.
== END 2021-02-24 17:08 ==
PROVIDERS: Emergency Provider Emergency Medicine; PCP Pediatrics
DX: F32.9 Major depressive disorder, single episode, unspecified (principal); R45.851 Suicidal ideations; F41.1 Generalized anxiety disorder; F43.10 Post-traumatic stress disorder, unspecified; F17.200 Nicotine dependence, unspecified, uncomplicated; Z79.899 Other long term (current) drug therapy
CPT/HCPCS: 80053; 80307; 80329; 82077; 84703; 85025; 87426; 93005; 99285; G0480

== ENCOUNTER 2021-03-21 22:53 | Emergency (ER) | payer MEDICAID, SELFPAY ==
[2021-03-21 22:53] VITALS: BP 137/84; PULSE 106; RESP 16; TEMP 36.4; O2SAT 98; BMI 36.8
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
[2021-03-21 23:44] LABS: Absolute Lymphocyte Count 1.98 X10^3/uL (0.83-4.51); Absolute Neutrophil Count 5.1 X10^3/uL (2.0-7.7); Basophil# 0.07 X10^3/uL; Basophil% 0.8 % (0-1); Eosinophil# 0.55 X10^3/uL; Eosinophils% 6.6 % (0-5); Hematocrit 43.5 % (37-47); Hemoglobin 14.5 g/dL (12.0-15.0); Lymphocyte # 1.98 X10^3/ul (0.83-4.51); Lymphocyte % 23.8 % (19-41); Mean Corp Hgb Conc 33.3 g/dL (32-36); Mean Corpuscular Hgb 30.8 pg (27.0-32.0); Mean Corpuscular Volume 92.4 fL (81-99); Mean Platelet Vol. 9.2 fl (6.2-12.0); Monocyte# 0.59 X10^3/uL; Monocyte% 7.1 % (0-10); NRBC Flagged by Analyzer 0 % (0-5); Neutrophil # 5.07 X10^3/uL (2.7-7.7); Neutrophil % 61.1 % (47-70); Platelet Count 330 K/mm3 (150-450); RBC Distribution Width CV 12.9 % (11.6-14.6); RBC Distribution Width SD 44.1 fl (35.1-43.9); Red Blood Count 4.71 M/mm3 (4.2-5.4); White Blood Count 8.3 K/mm3 (4.4-11.0)
[2021-03-21 23:58] LABS: Internal QC Validated? YES +Cl - CLEAR BKGD; Pregnancy, Serum, hCG Quali. NEGATIVE Negative
[2021-03-21 23:59] LABS: Anion Gap 6 (5-15); BUN 11 mg/dL (7-18); BUN/Creat Ratio 10.6 RATIO (10-20); Calcium,Total 8.5 mg/dL (8.5-10.1); Chloride 110 mmol/L (98-107); Creatinine, Serum 1.04 mg/dL (0.55-1.02); EST Glomerular Filtration Rate 71 mL/min (>60); Est Glom Filt Rate - Afr Amer 86 mL/min (>60); Estimated Creatinine Clearance 90.18 ml/min; Glucose 81 mg/dL (74-106); Potassium 3.8 mmol/L (3.5-5.1); Sodium Level 140 mmol/L (136-145)
[2021-03-22 00:11] LABS: Amphetamine Urine VISTA NEGATIVE (<1000 ng/mL); Barbiturate Urine VISTA NEGATIVE (< 200 ng/mL); Benzodiazepine Urine VISTA NEGATIVE (< 200 ng/mL); Cocaine Urine VISTA NEGATIVE (< 300 ng/mL); Ecstacy Urine VISTA NEGATIVE (< 500 ng/mL); Methadone Urine VISTA NEGATIVE (< 300 ng/mL); PCP Urine VISTA NEGATIVE (< 25 ng/mL); THC Urine VISTA POSITIVE (< 50 ng/mL); Vista UDS pH Range 6
[2021-03-22 00:53] VITALS: RESP 16
--- NOTE | 2021-03-22 00:54 | ED.RN ---
crisis is on the phone with patient at this time
[2021-03-22 01:59] VITALS: BP 130/78; PULSE 82; RESP 16; O2SAT 100
== END 2021-03-22 01:59 | disposition home or self-care (01) ==
PROVIDERS: Emergency Provider Emergency Medicine; PCP Pediatrics
DX: R45.1 Restlessness and agitation (principal); F32.9 Major depressive disorder, single episode, unspecified; F41.1 Generalized anxiety disorder; F43.10 Post-traumatic stress disorder, unspecified; F17.200 Nicotine dependence, unspecified, uncomplicated; Z79.899 Other long term (current) drug therapy
CPT/HCPCS: 80048; 80307; 82077; 84703; 85025; 99282

== ENCOUNTER 2021-05-16 08:56 | Emergency (ER) | payer MEDICAID, SELFPAY ==
[2021-05-16 08:57] VITALS: BP 163/98; PULSE 85; RESP 16; TEMP 36.6; O2SAT 97; BMI 40.0
--- NOTE | 2021-05-16 09:07 | EX.ED.DYSGE1 ---
HPI History of Present Illness Chief Complaint: Sore Throat Informant: patient and parent Narrative Narrative: 20-year-old female presented to the emergency department with sore throat. She states that the left tonsil was swollen. She denies any fevers. Symptoms of been present for 1 week. She states that 3 days ago she went to urgent care and they gave her prednisone. She has seen Dr. Maguire in the past. She states that it is painful to swallow. PFSH PFSH Medical History Bipolar disorder Bulimia nervosa Generalized anxiety disorder Major depressive disorder, recurrent severe without psychotic features Polysubstance abuse PTSD (post-traumatic stress disorder) Home Medications albuterol sulfate 1 puff INHALATION Q6H PRN PRN 11/30/19 [History Last Taken Unknown] lurasidone 60 mg PO DAILY 30 Days #30 tablet 02/09/21 [Rx Last Taken Unknown] amoxicillin-pot clavulanate 875 mg PO Q12H #20 tablet 05/16/21 [Rx Last Taken Unknown] hydrocodone-acetaminophen [Lortab Elixir] 15 ml PO Q6H PRN 3 Days #180 ml 05/16/21 [Rx Last Taken Unknown] Allergy/AdvReac Type Severity Reaction Status Date / Time cat dander Allergy Other Verified 05/16/21 08:57 dog dander Allergy Other Verified 05/16/21 08:57 Social History Smoking Status: Current every day smoker ROS ROS ED Constitutional Constitutional ED: Denies chills or weight loss Eyes Eyes: Denies change in vision or diplopia ENT ENT ED: Reports sore throat; Denies ear pain or rhinorrhea Cardiovascular Cardiovascular: Denies chest pain, orthopnea, palpitations or racing heartbeat Respiratory/Chest Respiratory/Chest: Denies cough, dyspnea or orthopnea Gastrointestinal Gastrointestinal: Denies abdominal pain, diarrhea, nausea or vomiting Genitourinary Genitourinary ED: Denies dysuria, hematuria or urinary frequency Musculoskeletal Musculoskeletal: Denies arthralgias or myalgias Integumentary Denies abscess or rash Neurologic Neurologic: Denies headache(s) or weakness Psychiatric Psychiatric: Denies anxiety, depression, suicidal ideation or suicidal thoughts Endocrine Endocrinology: Denies polydipsia, polyphagia or polyuria Allergic/Immunologic Allergic/Immunologic ED: Denies mouth swelling, tongue swelling or urticaria EXAM Physical Exam Const Vital Signs: 05/16/21 08:57 Temperature 98 F Temperature Source Temporal Pulse Rate 85 Respiratory Rate 16 Blood Pressure 163/98 H Blood Pressure Mean 119 Pulse Ox 97 Oxygen Delivery Method Room Air Positive well nourished and well developed General Appearance ED: well developed HEENT Reports normocephalic, head/scalp atraumatic and moist mucous membranes HEENT Narrative: There is evidence of early peritonsillar abscess on the left. Patient handling her secretions Eyes PERRL and EOMs intact bilaterally Neck no lymphadenopathy, supple and no JVD Resp normal respiratory effort and clear to auscultation bilaterally Cardio regular rate, regular rhythm and no murmurs GI normal to inspection, nondistended, normoactive bowel sounds and non-tender Palpation: soft Back/Spine no CVA tenderness and normal ROM Extremity normal to inspection General Extremety ED: Negative for edema General Extremity: Negative for edema Neuro oriented x3 and CN's II-XII intact bilaterally Sensorium / Orientation: alert Motor Exam: strength 5/5 throughout Psych mental status grossly normal Mood & Affect: Negative for depressed or tearful Skin no rashes or lesions noted and no wounds MDM MDM MDM Narrative Medical decision making narrative: I spoke with on-call ENT Dr. Mayberry. Patient will receive a dose of oral Decadron and IV Unasyn here in the department. We will discharge her home on Augmentin. She will follow up in the office in the next couple days or return if worsening. I will also write for pain medication. Discharge Plan Triage Chief Complaint: Sore Throat ED Provider: Tomasz Nolan Dx/Rx/DC Orders Clinical Impression: Abscess, peritonsillar Instructions: ED Peritonsillar Abscess Prescriptions: New amoxicillin-pot clavulanate [amoxicillin-pot clavulanate] 875 MG tablet 875 mg PO Q12H Qty: 20 RF: 0 Lortab Elixir 10-300 mg/15 mL solution 15 ml PO Q6H PRN (Reason: pain) 3 Days Qty: 180 RF: 0 No Action albuterol sulfate 1 INHALER inhaler 1 puff inhalation Q6H PRN PRN (Reason: Wheezing) RF: 0 lurasidone 60 MG tablet 60 mg PO DAILY 30 Days Qty: 30 RF: 1 Primary Care Provider: Tiffany Wells Referrals: Jesus Fontaine MD [STAFF PHYSICIAN] - 2 Days for wound check Tiffany Wells MD [Primary Care Provider] - Disposition Disposition: Home, Self Care
[2021-05-16] MEDS: Morphine 4 MG/ML Syringe IV (09:24)
[2021-05-16] MEDS: Ondansetron 4 MG/2 ML Vial IV (09:24)
[2021-05-16] MEDS: dexAMETHasone 10 MG/ML Vial 6 MG PO.IVFORM (09:24)
[2021-05-16 11:02] VITALS: BP 130/60; PULSE 74; RESP 16; O2SAT 98
== END 2021-05-16 11:03 | disposition home or self-care (01) ==
PROVIDERS: Emergency Provider Emergency Medicine
DX: J36 Peritonsillar abscess (principal); F31.9 Bipolar disorder, unspecified; F41.1 Generalized anxiety disorder; F17.200 Nicotine dependence, unspecified, uncomplicated; Z79.899 Other long term (current) drug therapy
CPT/HCPCS: 96365; 96375; 99283; A4216; J0295; J2405

== ENCOUNTER 2022-05-28 21:54 | Emergency (ER) | payer MEDICAID, SELFPAY ==
[2022-05-28 21:55] VITALS: BP 117/88; PULSE 90; RESP 16; TEMP 36.8; O2SAT 98
--- NOTE | 2022-05-28 22:02 | EKG12_ITS ---
Test Reason : CP Blood Pressure : / mmHG Vent. Rate : 070 BPM Atrial Rate : 070 BPM P-R Int : 122 ms QRS Dur : 092 ms QT Int : 378 ms P-R-T Axes : 065 053 048 degrees QTc Int : 408 ms Normal sinus rhythm Normal ECG Confirmed by BRANDON HOANG, LINDSEY ([id number]), news videotape editor NOAH WEINER ([id number]) on 05/30/2022 1:06:56 PM Referred By: JESÚS Confirmed By:LINDSEY TAYLOR MD
--- NOTE | 2022-05-28 22:08 | ED.VIS.CHEST ---
HPI History of Present Illness Chief Complaint: Chest Pain Informant: patient Onset/Context/Timing Onset: Days Activity at onset: gradual Timing: Intermittent Quality: Positive for Dull Location: Substernal, Right Chest and Left Chest Current Severity: Mild Maximum Severity: Mild Worsened By: Breathing Relieved By: Nothing Associated Symptoms: Negative for Nausea, Vomiting, Diaphoresis, Dyspnea, Cough, Fever, Lightheadedness, Acid Reflux or Palpitations Narrative Narrative: 21-year-old female history of PTSD and asthma. States last 3 days she has had some chest discomfort with deep breathing. Said it is peristernal on both sides. Denies any fall injury or trauma. She does do a lot of lifting and carrying things she works at [employer]. She denies any shortness of breath. No history of DVT or PE. No recent travel, surgery or immobilization. No calf pain or swelling. No hemoptysis. She has not been ill. No cough. No fever. No nausea vomiting or diarrhea. This is nonexertional. She is never had a collapsed lung. There is no family history of clotting disorder that she is aware of. She is not on any control pills. She is a non-smoker. Prior Similar Symptoms: Yes Recent Illness/Hospitalization: No CVD Risk Factors: Negative for Hypertension, Diabetes, Hypercholesterolemia, Family History 1' </=55 or Smoking PE Risk Factors: Negative for Recent Travel/Surgery, Recent Immobilization, Prior DVT or PE or OCP + Smoking + >/=35 TAD Risk Factors: Negative for Marfan's Syndrome PFSH PFS Medical History Bipolar disorder Bulimia nervosa Generalized anxiety disorder Major depressive disorder, recurrent severe without psychotic features Polysubstance abuse PTSD (post-traumatic stress disorder) Home Medications albuterol sulfate 90 mcg/actuation aerosol inhaler 1 puff inhalation Q6H PRN PRN Wheezing 11/30/19 [History Last Taken Unknown] Allergy/AdvReac Type Severity Reaction Status Date / Time cat dander Allergy Other Verified 05/28/22 21:56 dog dander Allergy Other Verified 05/28/22 21:56 Social History Smoking Status: Current every day smoker tobacco type: e-cigarettes ROS ROS ED ROS Narrative Pleuritic chest pain. Review of Systems ROS Unobtainable: Denies due to encephalopathy Constitutional Constitutional ED: Denies chills Eyes Eyes: Reports none ENT ENT ED: Denies ear pain Cardiovascular Cardiovascular: Reports as per HPI and chest pain; Denies palpitations or racing heartbeat Respiratory/Chest Respiratory/Chest: Denies cough or dyspnea Gastrointestinal Gastrointestinal: Denies abdominal pain Genitourinary Genitourinary ED: Denies dysuria or hematuria Musculoskeletal Musculoskeletal: Denies arthralgias or back pain Integumentary Denies abscess or Abrasions Neurologic Neurologic: Denies headache(s) Psychiatric Psychiatric: Denies anxiety Endocrine Endocrinology: Denies cold intolerance Hematologic/Lymphatic Hematologic/Lymphatic: Denies easy bleeding Allergic/Immunologic Allergic/Immunologic ED: Denies mouth swelling EXAM Physical Exam Narrative Exam Narrative: Well-appearing 21-year-old female vital signs stable afebrile. Heart rate 90. Pulse ox 90% room air no signs hypoxia. H EENT exam normal. Neck nontender no JVD. No lymphadenopathy. Lungs clear to auscultation bilaterally. Heart regular rhythm no murmur rate about 80. Chest wall mild parasternal tenderness. No ecchymosis or bruising. No subcu air or crepitance. Abdomen soft nontender. Moving all 4 extremities. Calves are nontender without edema or cords. Equal symmetrical radial pulses. Back and neurologic exam normal. Const Vital Signs: 05/28/22 21:55 Temperature 98.2 F Temperature Source Temporal Pulse Rate 90 Respiratory Rate 16 Blood Pressure 117/88 H Blood Pressure Mean 97 Pulse Ox 98 Oxygen Delivery Method Room Air Positive well nourished and well developed; Negative for cachectic, contractures or unkempt General Appearance ED: well developed and NAD; Negative for unkempt, cachectic, contractures or pallor Nutritional Appearance: Negative for cachectic HEENT Reports moist mucous membranes normocephalic and atraumatic; Negative for trauma or tenderness Eyes EOMs intact bilaterally General Eye ED: Negative for pale conjunctiva or scleral icterus Neck no lymphadenopathy, supple and no JVD General: Negative for tenderness Chest Wall inspection of chest normal; Negative for palpation of chest normal Chest Narrative: Mild tenderness perished are normal chest. No signs of trauma. Chest: tenderness Resp normal respiratory effort and clear to auscultation bilaterally Effort and Inspection: Negative for respiratory distress Auscultation: Negative for rales, rhonchi or wheezes Cardio regular rate, regular rhythm, S1 normal heart sound, S2 normal heart sound and no murmurs Rate: Negative for tachycardic Peripheral Pulses: pulses 2+ throughout GI normal to inspection, nondistended, normoactive bowel sounds, soft to palpation, non-tender, non-distended and no masses Auscultation: Negative for hyperactive bowel sounds Palpation: Negative for splenomegaly or mass Back/Spine no CVA tenderness and no thoracic nor lumbar tenderness General Back: Negative for CVA tenderness Cervical Spine: Negative for cervical spine tenderness Extremity normal to inspection General Extremety ED: Negative for edema or pulses abnormal General Extremity: Negative for edema or pulses abnormal Neuro oriented x3 and CN's II-XII intact bilaterally Sensorium / Orientation: awake, alert, oriented to person, oriented to place and oriented to time; Negative for confused, lethargic or stuporous Motor Exam: strength 5/5 throughout; Negative for general weakness Psych mental status grossly normal Appearance: Negative for unkempt Attitude: No agitated Mood & Affect: Negative for depressed, anxious or tearful Skin no rashes or lesions noted and no wounds General Skin Exam: Negative for jaundice or pallor Rashes: No rashes noted Trauma: Negative for abrasion or laceration Heart Score History: Slightly/Non-Suspicious ECG: Normal Age: </= 45 years Risk Factors: No Risk Factors Score: 0 MDM MDM MDM Narrative Medical decision making narrative: 21-year-old female history of asthma or pleuritic chest pain. Says using heroin 2 hours ago which helped. Currently no wheezing. No respiratory distress. She is never had a DVT or PE. She has no risk factors and is not on control. EKG and chest x-ray to be obtained. It is slightly reproducible. She does a lot of lifting and carrying with her work this may be chest wall strain. Patient be treated with Motrin. Repeat exam patient is doing well at 1016. Her EKG and chest x-ray are normal. I went over those results with her. She will be discharged home. Ice to her chest wall. Motrin for pain. Follow-up if not improving return if worse. Radiography Chest X-Ray - ED: 1 View, Read by ED Physician, Heart, Lungs, Mediastinum, Bony Structures and No Acute Disease Diagnostic Testing: X-ray, portable, single view interpreted by myself shows no acute abnormality. Normal cardiac silhouette mediastinum. Normal lung garcia. Rhythm Strip Rhythm Strip: Sinus Rhythm Rate: 70 Ectopy: None EKG Initial EKG: Attestation: I personally reviewed and interpreted this EKG as follows: Interpretation: Sinus Rhythm and No Acute Injury Pattern Comments: Normal sinus rhythm rate of 70. No signs of WI or ischemia. No tachycardia. No S1Q3T3. AG. Discharge Plan Triage Chief Complaint: Chest Pain ED Provider: Raman Liu Dx/Rx/DC Orders Clinical Impression: Chest wall muscle strain, Chest pain, History of asthma Instructions: ED Chest Pain, Uncertain Cause Prescriptions: No Action albuterol sulfate 1 INHALER inhaler 1 puff inhalation Q6H PRN PRN (Reason: Wheezing) lurasidone 60 MG tablet 60 mg PO DAILY 30 Days Qty: 30 1RF Rx Instructions: Take on po daily with food at dinner. amoxicillin-pot clavulanate [amoxicillin-pot clavulanate] 875 MG tablet 875 mg PO Q12H Qty: 20 0RF Lortab Elixir 10-300 mg/15 mL solution 15 ml PO Q6H PRN (Reason: pain) 3 Days Qty: 180 0RF hydrocodone-acetaminophen 7.5-325 mg/15 mL solution 15 ml PO Q6H PRN (Reason: pain) 3 Days Qty: 180 0RF Primary Care Provider: Care Physician,No Primary Referrals: Arti Hedrick MD [Med Staff - [facility]] - 1 Week if not improving Care Physician,No Primary [Primary Care Provider] - Activity Restrictions/Additional Instructions: Your EKG and chest x-ray are both completely normal. This may just be strain of your chest wall. Ice to your chest wall. Motrin for pain and inflammation. This should progressively get better if not follow-up to be reevaluated or return if feeling a lot worse. Disposition Disposition: Home, Self Care
--- NOTE | 2022-05-28 22:10 | RAD_ITS ---
INDICATION: cp EXAMINATION/TECHNIQUE: X-RAY - XR Chest 1 View COMPARISON: 12/09/2019. FINDINGS: LINES/DEVICES: None. LUNGS: No consolidation, edema or effusion. No pneumothorax. MEDIASTINUM AND CARDIOVASCULAR STRUCTURES: Cardiac silhouette not enlarged. Central airways and mediastinal contour are unremarkable. BONES AND SOFT TISSUES: Unremarkable. RAD/Chest 1 View (Portable) IMPRESSION: No radiographic evidence of acute cardiopulmonary disease. Electronically Signed: Jacinto Hoyt MD at 22:45 EDT ,
[2022-05-28] MEDS: Ibuprofen 600 MG Tablet PO (22:18)
[2022-05-28 22:25] VITALS: BP 133/67; PULSE 79; RESP 15; O2SAT 99
== END 2022-05-28 22:27 | disposition home or self-care (01) ==
PROVIDERS: Emergency Provider Emergency Medicine; Visit Provider Emergency Medicine
DX: S29.011A Strain of muscle and tendon of front wall of thorax, initial encounter (principal); F17.290 Nicotine dependence, other tobacco product, uncomplicated; F11.90 Opioid use, unspecified, uncomplicated; J45.909 Unspecified asthma, uncomplicated; F43.10 Post-traumatic stress disorder, unspecified; X50.0XXA Overexertion from strenuous movement or load, initial encounter
CPT/HCPCS: 71045; 93005; 99283

== ENCOUNTER 2022-06-20 07:00 | Outpatient (RCR) | payer MEDICAID, SELFPAY ==
--- NOTE | 2022-06-20 13:34 | BH.PSA ---
Suicide Assessment Treatment Plan Recommendations
--- NOTE | 2022-06-20 14:31 | BH.MDN ---
Multi-Disciplinary Note - Note 30-min Individual Time Started:: 11:15 Date: 06/20/22 Purpose of session/treatment goals addressed:: Purpose of session was to identify current symptoms and stressors. Additional focus was to identify treatment goals for IOP level of care. Eye Contact:: Good Motor Activity:: Restless Appearance:: Casual Speech:: Appropriate Mood:: Anxious, Depressed Affect:: Constricted Thoughts:: Linear, Logical, No evidence of hallucinations/delusions noted Staff Interventions:: CBT techniques, rapport building, strengths perspective, treatment planning Client Response:: Client reported she had been working at [employer] since July 2021 but started to struggle in the last 2 to 3 months with experiencing increased trauma symptoms and anxiety. Client stated she was having trauma flashbacks, intrusive thoughts and her nightmares returned. Client reported she was having difficulty getting up for work and when she did not make it work was having panic attacks. Client reported she was fired 1-1/2 weeks ago due to poor attendance. Client reported she is having extreme difficulty going to the grocery store due to feeling panic. Client stated while she is at their store she feels like she cannot focus and thinks everyone is looking at her. Client identified while she is in the program this time she wants to focus on consistent attendance, implying the skills outside treatment and creating more structure for herself. Client reported to be helpful to review healthy coping skills and ability to challenge negative thought patterns. Client stated her depression has slightly improved since being off work. However does have the stress of paying for her bills now that she does not have a job. Risks/Concerns:: Client reports passive thoughts of denies active suicidal thoughts, plan, or intention. Future focused feels able to maintain safety. Denies access to firearms. Agreeable to go to nearest emergency room if feels unable to maintain safety. Progress Toward Goals/Plan:: Progress limited given his client's first week in IOP. Session focused on identifying treatment goals and understanding what led to client needing IOP level of care. Client to continue IOP to improve mood stability, increase utilization of healthy coping skills, improve daily functioning, and prevent decompensation. Time Stopped:: 11:45
--- NOTE | 2022-06-20 15:34 | BH.MTP_ITS ---
Master Treatment Plan - Patient Information Program Physician:: Dr. Ken Primary Therapist:: Malgorzata Chatterjee, [facility] - Psychiatric Diagnoses Psychiatric Diagnoses:: 1. Bipolar 2 disorder, most recent episode depressed. 2. Generalized anxiety disorder. 3. PTSD. 4. History of bulimia nervosa with purging by emesis in partial remission. 5. Strong cluster B traits. 6. Marijuana use disorder. 7. Nicotine use disorder. 8. History of cocaine and methamphetamine use Diagnosis Code(s):: F31.81 - Estimated LOS Estimated LOS (in weeks):: 6 Problem/Goal #1 - Problem/Goal #1 Stated Goal:: Client will increase mood stability, decrease depressive symptoms and hopelessness through Intensive Outpatient Services. Description of Barriers: Client has hx of medication noncompliance and poor attendance history to treatment which could be barriers to treatment. Additional barriers include: apathy, negative thinking, limited support network, and continued connection with toxic support person. Functional Impact: The patient is a 21-year-old female with a history of depression, anxiety, PTSD and possible ADHD who referred herself to the [facility] IOP program for worsening symptoms of depression and anxiety. She was previously in the IOP program at [facility] from December to January 2021 but did not finish due to hospitalization for suicidal ideation. The patient states that she had had has had anxiety for her whole life but not this type. She reports used to have panic attacks once or twice a year but now they are happening once a week or more at when she was working. She last worked about 10 days ago when she got fired 10 days ago due to missing work due to severe anxiety and having panic attacks at work. Her PTSD symptoms have been triggered all the time lately, but she is not sure what is triggering them other than increased stress. She endorses hopelessness and worthlessness. - Objectives Objective #1 Stated Objective: Client will learn and utilize 2-3 healthy coping strategies to manage depressive symptoms as shown by reduced DSM-5 cross-cutting symptom measure score. Interventions: Therapist will utilize CBT techniques to assist client with understanding the connection between thoughts, feelings and behaviors. Education will be provided on behavioral activation. Therapist will assist client in learning internal coping strategies to manage depressive symptoms, along with helping client identify triggers. Discharge Criteria: Client will have achieved this goal when can verbalize and has practiced at least 2 healthy coping strategies that successfully manage depressive symptoms. Target Date: 08/01/22 Review Date: 07/18/22 Objective #2 Stated Objective: Client will identify and replace 2-3 negative thinking patterns that reinforce feelings of hopelessness and helplessness. Interventions: Therapist and group sessions will help client identify distorted, negative beliefs about self and replace with more realistic, affirmative messages. Therapist will use CBT to help client increase insight to the c onnection between thoughts, emotions, and behaviors. Therapist will encourage client to practice thought challenging. Discharge Criteria: Client will have met this goal when can replace at least 2 negative thought patterns with rational, affirmative messages. Target Date: 08/01/22 Review Date: 07/18/22 Problem/Goal #2 - Problem/Goal #2 Stated Goal:: Stabilize anxiety level while increasing ability to function on a daily basis. Description of Barriers: Client has hx of medication noncompliance and poor attendance history to treatment which could be barriers to treatment. Additional barriers include: apathy, negative thinking, limited support network, and continued connection with toxic support person. Functional Impact: The patient is a 21-year-old female with a history of depression, anxiety, PTSD and possible ADHD who referred herself to the [facility] IOP program for worsening symptoms of depression and anxiety. She was previously in the IOP program at [facility] from December to January 2021 but did not finish due to hospitalization for suicidal ideation. The patient states that she had had has had anxiety for her whole life but not this type. She reports used to have panic attacks once or twice a year but now they are happening once a week or more at when she was working. She last worked about 10 days ago when she got fired 10 days ago due to missing work due to severe anxiety and having panic attacks at work. Her PTSD symptoms have been triggered all the time lately, but she is not sure what is triggering them other than increased stress. She endorses hopelessness and worthlessness. - Objectives Objective #1 Stated Objective: Client will be able to explain common stress reactions and symptoms related to trauma and learn 2-3 calming skills to manage symptoms. Interventions: Therapist and group will help client explore personal symptoms and warning signs of stress and trauma. Therapist will teach client coping skills to improve emotional regulation, mindfulness, and distress tolerance. Therapist will help client get connected with additional trauma-focused services, should client agree. Discharge Criteria: Goal will be met once can identify personal trauma and stress reactions and report using calming skills to help manage symptoms. Target Date: 08/01/22 Review Date: 07/18/22 Objective #2 Stated Objective: Pt will decrease anxious symptoms AEB pt?s score on the DSM 5 cross-cutting measure improve pt?s daily functioning. Interventions: Through groups and individual therapy, pt will be provided education about anxiety?s impact on body and common physiological reaction to anxiety. Therapist will teach pt appropriate breathing techniques and build healthy coping skills to manage daily anxieties. Discharge Criteria: Pt will have met this goal when pt?s score on the DSM 5 cross cutting measure for anxiety has been decreased and per pt?s report daily functioning has improved. Target Date: 08/01/22 Review Date: 07/18/22
--- NOTE | 2022-06-21 10:10 | BH.SGPN.GN ---
Behaviors/Verbalizations/Mental Status: []Pt alert and oriented, casually dressed and groomed. Eye contact good. Motor activity appropriate. Speech within normal limits. Affect flat, mood depressed. Thoughts linear, logical, no signs of hallucinations or delusions. Client Response/Progress/Benefit: []Pt was an active?participant in group discussion. Group worked together to identify benefits of healthy relationships which include; improves mental health, encouragement, motivation, accountability, validation, connection, someone to share experiences with, and personal growth. Group identified factors that lead to unhealthy relationships which included; co-dependence, gaslighting, not addressing issues, name-calling, and doing only what others want.?Pt?s personal factors were co-dependence, emotional manipulation, and trauma-bonding. Actively participated in group experiential activity and expressed her ideas to group. Benefited from increased insight and awareness of benefits of healthy relationships and factors that contribute to unhealthy relationships. First week of IOP tx. Will continue in IOP to prevent decompensation, reduce isolative behaviors and avoidance, and improve daily functioning. ? Narrative Note: []
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
[2022-06-21 11:55] VITALS: BP 119/70; PULSE 60
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
--- NOTE | 2022-06-21 12:45 | BH.DR.ITP ---
Initial Treatment Plan Patient Information Visit Information: ADMISSION DATE: EXPECTED LOS: 4-6 weeks Problems/Symptoms Problem #1:: Depression Symptom:: Sadness, hopelessness, worthlessness, guilt, low energy, isolation decreased concentration, passive thoughts of Problem #2:: Anxiety Symptom:: Worry, rumination, panic attacks, avoidance, exaggerated startle reflex, flashbacks, dissociation
--- NOTE | 2022-06-26 09:05 | BH.SGPN.GN ---
Behaviors/Verbalizations/Mental Status: [] Eye contact is good. Motor activity is appropriate. Appearance is casual. Speech is Appropriate. Mood is depressed. Affect is flat. Thoughts are linear and logical. No evidence of psychosis. Reviewed daily check in sheet and pt reports 2/5 for suicidal ideations and 2/5 for intent. Therapist notified. Client Response/Progress/Benefit: [] Pt was an active participation in the group discussion. Attentive. Provided appropriate feedback. Daily symptom tracker notes 4/5 for anxiety and depression. Admits that she struggled this weekend and a significant impulse to ?drive to [facility]?. States that she wanted to escape. Tearful stating that she wants to run from all her troubles and triggers here in [place]. ?I almost went?. She had no concrete plan nor does she have disposal income to simply drive to [place]. Insight on how this is related to her trauma and her history of avoiding her issues. She is proud that she choose instead to fight urges and impulse and to come to IOP today. Progress noted per pt report. Benefited from group support, encouragement, and feedback. Will continue in IOP to maintain safety, increase healthy coping, stabilize mood, and improve functioning. Narrative Note: []
--- NOTE | 2022-06-26 10:10 | BH.SGPN.GN ---
Behaviors/Verbalizations/Mental Status: []Pt alert and oriented, disheveled appearance. Eye contact good. Motor activity appropriate. Speech within normal limits. Affect constricted, mood depressed. Thoughts linear, logical, no signs of hallucinations or delusions. Client Response/Progress/Benefit: []Pt was an active participant in group discussions and activity. Attentive during psychoeducation. Pt along with peers were able to identify several negatives on the picture given to the group. Pt and peers also identified positives in the picture and made the connect that finding positives is much more difficult. Interactive discussion on the definition of perspective, how perspective is formed, and why perspective is important in treatment. Pt along with peers also identified that perspective can either motivate and encourage treatment or be a barrier to receiving help. Pt shared having a more realistic and positive perspective can make a person more resilient and that reminder helps pt. Will continue in IOP to prevent decompensation, increase the use of healthy coping skills, and improve overall functioning. Narrative Note: []
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
--- NOTE | 2022-06-28 09:05 | BH.SGPN.GN ---
Behaviors/Verbalizations/Mental Status: []Pt alert and oriented, casually dressed and groomed. Eye contact good. Motor activity appropriate. Speech within normal limits. Affect constricted, mood calm. Thoughts linear, logical, no signs of hallucinations or delusions. Reviewed pt?s symptom tracker, no risk for suicidal ideation, plan, or intent as of 06/28/22 Client Response/Progress/Benefit: [] Pt responded well to session, engaged and contributing. Pt reports feeling proud this morning as pt did not drink last night and instead spent time with healthy supports. Pt shared she was able to stop herself from drinking earlier this week as well whereas in the past, pt would have gotten drunk. Pt continues to struggle with numerous stressors, including her relationship with food and her body per her report. Pt appeared to benefit from connecting with peers and reflecting on her use of healthy coping skills. Will continue IOP tx to prevent decompensation, improve overall functioning, and increase distress tolerance skills. Narrative Note: []
--- NOTE | 2022-06-28 10:10 | BH.SGPN.GN ---
Behaviors/Verbalizations/Mental Status: [] Eye contact is good. Motor activity is appropriate. Appearance is disheveled. Speech is Appropriate. Mood is anxious. Affect is congruent. Thoughts are linear and logical. No evidence of psychosis. Client Response/Progress/Benefit: [] Pt was a active participant in group discussions. Attentive during psychoeducation. Along with peers pt participated in interactive discussions in which group defined self-care, discussed the benefits to self-care, and identified common myths surrounding self-care which included; self-care is selfish, self-care is self-indulgent, self-care is just personal hygiene, self-care should be fun, self-care is too time consuming, I don?t deserve it, self-care means I?m not being productive. Pt and peers broke into smaller group and worked together to bust the myths associated with self-care. Benefited from increased awareness of the self-care and its benefits. Will continue in IOP to maintain safety, prevent decompensation, increase healthy coping, and improve functioning. Narrative Note: []
== END 2022-06-28 23:59 ==
LOC: BHIOP 07:00
PROVIDERS: Visit Provider Psychiatry & Neurology Psychiatry
DX: F31.81 Bipolar II disorder (principal); F41.1 Generalized anxiety disorder; F43.10 Post-traumatic stress disorder, unspecified; F12.99 Cannabis use, unspecified with unspecified cannabis-induced disorder; F17.200 Nicotine dependence, unspecified, uncomplicated; Z91.51 Personal history of suicidal behavior
CPT/HCPCS: 90792; H2012; H2020; S9480; T1002; 90832; 90837

== ENCOUNTER 2022-06-29 07:44 | Outpatient (RCR) | payer MEDICAID, SELFPAY ==
[2022-06-29 00:49] VITALS: BP 119/70; PULSE 60
--- NOTE | 2022-06-30 09:05 | BH.SGPN.GN ---
Behaviors/Verbalizations/Mental Status: [] Eye contact is good. Motor activity is appropriate. Appearance is casual. Speech is Appropriate. Mood is euthymic. Affect is full. Thoughts are linear and logical. No evidence of psychosis. Reviewed daily check in sheet and pt reports 1/5 for suicidal ideations and 1/5 for intent. Client Response/Progress/Benefit: [] Pt was an active participant in group discussion. Attentive. Daily symptom tracker notes 3/5 for depression and 2/5 for anxiety, irritability, and self-harm urges . Mental health win was ? I didn?t self-medicate after a stressful situation yesterday?. She briefly shared the specifics of the situation, what made it stressful, and how she would have coped through self-medication in the past. She utilized healthy coping skills and self-care and is proud of herself for that. Progress noted. Benefited from group support, encouragement, and feedback. Will continue in IOP to prevent decompensation, improve functioning, and increase healthy coping skills. Narrative Note: []
--- NOTE | 2022-06-30 09:57 | BH.SGPN.GN ---
Behaviors/Verbalizations/Mental Status: []Pt alert and oriented, casually dressed and groomed. Eye contact good. Motor activity restless. Speech within normal limits. Affect constricted, mood anxious and depressed. Thoughts linear, logical, no signs of hallucinations or delusions. Client Response/Progress/Benefit: []Pt participated at times during the group discussion. Attentive during psychoeducation. Participated in experiential activity. Pt contributed during interactive discussion on the consequences of unhealthy expression of emotions.? Attentive while peers identified several consequences which included; pushing people away, ?exploding,? and losing relationships. Attentive during interactive discussion on common potholes to effectively communicating and pt identified personal ones such as shutting down, oversharing, and ?RBF.? Pt was able to relate and make connections between the experiential activity and the overall topic, reported feeling anxious and frustrated, but pt tried to focus on what was in her control. Benefited from increased awareness of how stress and emotions can impact one's ability to communicate. Will continue in IOP to improve overall mood stability, increase impulse control, and reduce unhealthy coping skills. Narrative Note: []
--- NOTE | 2022-06-30 11:05 | BH.SGPN.GN ---
Behaviors/Verbalizations/Mental Status: []Pt alert and oriented, casually dressed and groomed. Eye contact good. Motor activity appropriate. Speech within normal limits. Affect constricted, mood agitated. Thoughts linear, logical, no signs of hallucinations or delusions. Client Response/Progress/Benefit: []Pt engaged in session AEB pt listening attentively to peers and providing input. Attentive during psychoeducation on 4 zones of regulation. Pt able to identify feelings and behaviors for each zone.? Pt identified coping skills one can use to support self in each zone. Pt stated belief that pt is in the red zone today as pt feels overwhelmed by ?everything.? Pt reports monitoring her emotions and spending time with positive supports will help pt calm herself down today and get out of the red zone today. Benefited from increased education on zones of regulation or stages of alertness for emotions and healthy coping skills to use for each zone. Pt will continue IOP tx to prevent decompensation, increase impulse control, and improve boundary setting. ?? Narrative Note: []
--- NOTE | 2022-07-04 10:33 | BH.COMM_ITS ---
Communication Note - Communication with Client Communication Note: Client no showed/no called IOP today. This promotion writer attempted to leave voicemail but client's voicemail box is full.
--- NOTE | 2022-07-04 10:33 | BH.COMM ---
Communication Note - Communication with Client Communication Note: Client no showed/no called IOP today. This policy writer sales attempted to leave voicemail but client's voicemail box is full.
--- NOTE | 2022-07-05 09:00 | BH.SGPN.GN ---
Behaviors/Verbalizations/Mental Status: [] Eye contact is good. Motor activity is appropriate. Appearance is casual. Speech is Appropriate. Mood is euthymic. Affect is full. Thoughts are linear and logical. No evidence of psychosis. Reviewed daily check in sheet and pt reports 2/5 for suicidal thoughts and 1/5 for intent. Close to baseline for patient. Client Response/Progress/Benefit: [] Pt was an active participant in group discussion. Attentive. Provided appropriate feedback. Daily symptom tracker notes 2/5 for depression and 3/5 for anxiety. Emotion for today is anxious. Mental health wins are I made it here today. She overslept yesterday and missed IOP which she ruminated on the whole day. She elaborated on how certain events impact her emotionally and lead to excessive rumination. Also shared that she is got a new job which is part-time and she plans to ease herself back into work stating I'm start out slow. She described the job and believes that the responsibilities and times are conducive to her lifestyle. Looking back at the weekend she commented that she managed her thoughts, emotions, and actions pretty good and did not drink to self-medicate. Current stressor is that she has not started medication prescribed by program psychiatrist b/c I can't afford it. Will have program nurse speak with patient to determine obstacles and help her get her medication. Progress noted per pt report. Benefited from group support, encouragement, and feedback. Will continue in IOP to prevent decompensation, stabilize mood, and improve functioning. Narrative Note: []
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
--- NOTE | 2022-07-06 09:29 | BH.COMM ---
Communication Note - Communication with Client Communication Note: Client showed up at 10am this morning for group. Stated she was feeling sick. Decided together with this insurance writer it would be best for her to go home, rest and get tested for covid. Client stated she will contact staff tomorrow morning about test results.
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
--- NOTE | 2022-07-11 09:05 | BH.SGPN.GN ---
Behaviors/Verbalizations/Mental Status: [] Eye contact is good. Motor activity is appropriate. Appearance is disheveled. Speech is Appropriate. Mood is depressed. Affect is flat. Thoughts are linear and logical. No evidence of psychosis. Reviewed daily check in sheet and pt reports 3/5 for suicidal ideations and 2/5 for intent. Therapist is aware. Client Response/Progress/Benefit: [] Pt was an active participant in group discussion. Attentive. Daily symptom tracker notes 4/5 for anxiety and 3/5 for depression. Pt shared that she had been ill the past few days which was not beneficial to her mental health. Mental health win was that she started a new medication which was prescribed several weeks ago. She is ?unsure? if its helpful as she feels that it causes her to be numb and feel weird. Agreeable to coming in tomorrow AM to speak with program psychiatrist. Mental health wins include ?going to a concert? over the weekend. She elaborated on why this was beneficial to her mental health and how she utilized skills to minimize distress. She continued with self-care as well. Progress noted per pt report. Benefited from group support, encouragement, and feedback. Will continue in IOP to prevent decompensation, increase healthy coping, and improve functioning. Narrative Note: []
--- NOTE | 2022-07-11 10:05 | BH.SGPN.GN ---
Behaviors/Verbalizations/Mental Status: [] Client alert and oriented, neatly dressed and groomed. Eye contact good. Motor activity appropriate. Speech within normal limits. Affect constricted, mood euthymic. Thoughts linear, logical, no signs of hallucinations or delusions. Client Response/Progress/Benefit: [] Client connected with topic of Anxiety and participated throughout, providing input and taking notes. Attentive during psychoeducation on different anxiety disorders and participated throughout interactive discussion defining anxiety and identifying cognitive and physiological symptoms of anxiety. Common cognitive symptoms identified by group included: ?what if thoughts?, all or nothing thinking, and predicting the future type thoughts. Physiological symptoms reported by patient included: stomach pain and numbness in her body. Benefited from increased awareness and insight on anxiety and its impact. Will continue IOP tx to increase consistency of healthy coping and thought challenge skills and prevent decompensation. Narrative Note: []
--- NOTE | 2022-07-11 11:05 | BH.SGPN.GN ---
Behaviors/Verbalizations/Mental Status: [] Client alert and oriented, casually dressed and neatly groomed. Eye contact good. Motor activity appropriate. Speech within normal limits. Affect constricted, mood euthymic, Thoughts linear, logical, no signs of hallucinations or delusions. Client Response/Progress/Benefit: [] Client was an active participant in group discussion and providing good insight to peers. Reviewed safety behaviors she engages in that reinforce anxiety. Attentive during psychoeducation on mindfulness coping skills and their impact on mental health wellness. The group worked together to brainstorm anxiety reduction strategies. Client shared menu of relaxation strategies she will utilize which included going outside and guided meditation. Client seemed to benefit from increased repertoire of anxiety reduction skills. Client will continue IOP tx to increase overall functionting and gain healthy coping skills. Narrative Note: []
--- NOTE | 2022-07-14 13:36 | BH.MDN ---
Multi-Disciplinary Note - Note 60-min Individual Time Started:: 11:05 Date: 07/14/22 Purpose of session/treatment goals addressed:: Purpose of session was to address goals 1 and 2 from Master treatment plan. Eye Contact:: Fair Motor Activity:: Appropriate Appearance:: Casual Speech:: Appropriate Mood:: Anxious Affect:: Constricted Thoughts:: Linear, Logical, No evidence of hallucinations/delusions noted Staff Interventions:: thought challenging, motivational interviewing, psychoeducation on: - Distress tolerance, CBT techniques, strengths perspective, taught coping skills Client Response:: Client reported overall she has been doing better the last few days. Client stated she was able to go to a concert that she has been wanting to see for a long time and reported having a lot of fun. Client stated she had a really good talk with her grandma in which client expressed how grandma can impact client's mental health. Client stated this was the first time grandma was mostly supportive in a long time. Client stated she has been able to decrease, she has been drinking alcohol which she recognizes is helpful. Client reported depression is about the same. Client reported her anxiety is starting to increase slightly with having a hard time leaving the house and having more physical anxious symptoms. Client reported she did go to a maldonado that she enjoys at a park when feeling super anxious over last weekend which helped calm her down. Client connected with a DBT distress tolerance skills and agreed to practice skills throughout the week. Risks/Concerns:: Client denies suicidal ideation, plan, intent. Future focused, feels able to maintain safety. Progress Toward Goals/Plan:: Progress noted with client reporting decreased alcohol use and ability to keep depression from getting worse. Client is reporting increase in anxious symptoms with no apparent cause. Client open to practicing distress tolerance skills to help her manage emotions in the moment more effectively. Client to continue IOP to continue continued use of coping skills, challenge negative thought patterns, and prevent decompensation. Time Stopped:: 12:00
--- NOTE | 2022-07-18 09:00 | BH.SGPN.GN ---
Behaviors/Verbalizations/Mental Status: [] Eye contact is good. Motor activity is appropriate. Appearance is casual. Speech is Appropriate. Mood is depressed. Affect is flat. Thoughts are linear and logical. No evidence of psychosis. Reviewed daily check in sheet and pt reports 2/5 for suicidal thoughts and 2/5 for intent. This has been baseline. Client Response/Progress/Benefit: [] Pt was an active participant in group discussion. Attentive. Daily symptom tracker notes 3/5 for depression and anxiety. 2/5 for self-harm urges. Emotion for today is worn out. She shared several mental health wins since her last IOP session. Also reports that she was honest with my supports over the weekend. Discussed how being vulnerable is difficulty for her however insight on the benefits. This past weekend was difficult which she reports is mainly due to certain people knowing that she is around. She was vague but insight and awareness that it would be beneficial for her to occupy her free time on the weekends which is why she is starting a new job this weekend. Overall progress noted. Benefited from group support, encouragement, and feedback. Will continue in IOP to maintain safety, increase healthy ccoping, and stabilize mood. Narrative Note: []
--- NOTE | 2022-07-18 11:02 | BH.SGPN.GN ---
Behaviors/Verbalizations/Mental Status: []Client alert and oriented, casually dressed and groomed. Eye contact fair to good. Motor activity appropriate. Speech within normal limits. Affect congruent, mood dysthymic. Thoughts linear, logical, no signs of hallucinations or delusions. Client Response/Progress/Benefit: []Client responded well to session AEB completing the resilience worksheet provided. Client participated in the discussion of how each resiliency component can help increase personal resiliency and worked cooperatively with group to identify strategies to enhance each of the components discussed. Client reported she feels she is doing well with the resilience traits of ?nurture a positive view of self? and ?maintain a hopeful outlook?. Client stated she would like to continue to develop resilience trait of ?move towards your goals? by holding herself more accountable in following through with personal goals. Client seemed to benefit from discussing strategies for improving personal resilience and identifying resilience traits client already possesses. Progress noted in improved perspective and reports of increased consistency in skill application. Will continue IOP tx to prevent decompensation, continue to promote use of healthy coping skills, and increase emotion regulation. Narrative Note: []
--- NOTE | 2022-07-20 10:27 | BH.COMM_ITS ---
Communication Note - Communication with Client Communication Note: Client no showed/no called. This global technical writer spoke with client via phone. Client reported she overslept today and reported she would come tomorrow. This global technical writer reiterated to client if she does not show for IOP tomorrow she will be discharged from program. Client expressed understanding.
--- NOTE | 2022-07-20 10:27 | BH.COMM ---
Communication Note - Communication with Client Communication Note: Client no showed/no called. This race and sports book writer spoke with client via phone. Client reported she overslept today and reported she would come tomorrow. This race and sports book writer reiterated to client if she does not show for IOP tomorrow she will be discharged from program. Client expressed understanding.
--- NOTE | 2022-07-21 10:00 | BH.SGPN.GN ---
Behaviors/Verbalizations/Mental Status: [] Eye contact is good. Motor activity is appropriate. Appearance is casual. Speech is Appropriate. Mood is depressed. Affect is congruent. Thoughts are linear and logical. No evidence of psychosis. Client Response/Progress/Benefit: [] Pt participated at times during the group discussion. Attentive during psychoeducation. Active and engaged during experiential activity. Participated during interactive discussion on aspects of fixed mindset. Group identified several aspects of fixed mindset which included; inflexible, belief that one cannot grow, absolute thinking, and all of one's skills, traits, and behaviors are set in stone and can't change. Group then identified examples of fixed thinking which included; Im never going to get better, I'm always going to be like this, I'm going to fail, I'm broken and will always be like this. Pt reports that she feels stuck due to her fixed thoughts. Pt did well in experiential activity in which they were given a seemingly impossible task and were asked to identify fixed thoughts that arose. Benefited from increased understanding of fixed mindsets and how they can impact mental health. Will continue in IOP to prevent decompensation, increase healthy coping skills, maintain safety, and improve functioning. Narrative Note: []
--- NOTE | 2022-07-21 11:00 | BH.SGPN.GN ---
Behaviors/Verbalizations/Mental Status: []Pt alert and oriented, casually dressed and groomed. Eye contact good. Motor activity appropriate. Speech within normal limits. Affect constricted, mood dysthymic. Thoughts linear, logical, no signs of hallucinations or delusions. Client Response/Progress/Benefit: []Pt was an active participant in group discussion. Participated in their small group and was attentive during group psychoeducation on growth mindset vs fixed mindset. Pt and peers identified and shared examples of growth mindset. Pt participated in interactive discussion and practiced changing a fixed mindset thought to a growth mindset thought. Pt reframed his fixed thought of ?I?ll never leave my comfort zone? and challenged this with ?it?s okay to not always be comfortable and I can set small goals.? Benefited from increased awareness and insight of growth mindset and strategies to change from fixed mindset thoughts to growth mindset thoughts. Plan to continue in IOP to prevent decompensation, increase consistent attendance and application of coping skills, and monitor medication. Narrative Note: []
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
--- NOTE | 2022-07-25 10:10 | BH.SGPN.GN ---
Behaviors/Verbalizations/Mental Status: [] Client alert and oriented, casually dressed and groomed. Eye contact good. Motor activity appropriate. Speech within normal limits. Affect congruent, mood euthymic. Thoughts linear, logical, no signs of hallucinations or delusions. Client Response/Progress/Benefit: [] Client responded well to session AEB sharing and listening attentively to others. Client provided examples of benefits of having social support. Client also participated in group discussion regarding the different kinds of supports in our safety net and the things that weaken or prevent us from using our supports with identifying that her cat is a support for her. Clinician provided psychoeducation on types of support including internal and external support, with client identifying family and hobbies as other supports. Client participated in experiential activity illustrating the importance of having multiple social supports. Client provided supportive feedback and problem solving throughout group activity. Client participated in group processing of the activity. Client appeared to benefit from increased knowledge of the benefits of social support and greater self-awareness. Will continue IOP treatment to continue prevent decompensation and increase positive self talk. Narrative Note: []
--- NOTE | 2022-07-25 11:10 | BH.SGPN.GN ---
Behaviors/Verbalizations/Mental Status: [] Client alert and oriented, casually dressed and groomed. Eye contact good. Motor activity appropriate. Speech within normal limits. Affect congruent, mood euthymic. Thoughts linear, logical, no signs of hallucinations or delusions. Client Response/Progress/Benefit: [] Client was an active participant throughout AEB contributing to discussion, providing personal examples, and taking notes. Client provided input during discussion on the types of support our supports can provide. Client able to identify current support system and barriers that get in the way of using supports by drawing out their own support net. Client reported after identifying what type of supports they receive; they gained awareness that they could benefit from more informational supports. Client identified steps to achieve this by getting a library card, get a PCP (primary care DrMichael) established, and read more books. Client shared increasing tangible supports will help her think more logically. Client seemed to benefit from identifying the type of support client needs to work on improving. Client recommended to continue IOP tx to prevent decompensation,decrease presenting irritability, and increase emotional regulation skills. Narrative Note: []
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
--- NOTE | 2022-07-27 10:15 | BH.SGPN.GN ---
Behaviors/Verbalizations/Mental Status: []Eye contact is good. Motor activity is appropriate. Appearance is casual. Speech is Appropriate. Mood is anxious. Affect is congruent. Thoughts are linear and logical. No evidence of psychosis. Client Response/Progress/Benefit: []Pt was an active participant in group discussion, reporting ?you can?t heal where you were hurt.? Attentive during psychoeducation on problem-solving strategies. Participated in group experiential activity. Pt provided feedback during interactive group discussion in which pt and peers worked through an example of a problem (Managing Anxiety) in which they identified a goal (minimizing anxiety) and identified barriers. Group was able to complete the activity and pt was able to practice in the moment problem-solving and make connections between problem-solving for activity and in real-life situations. Increased awareness of how pt responds to stressors and progress in not shutting down during stressful situations. Will continue IOP tx to prevent decompensation, increase use of healthy coping skills, and reduce self-sabotage. Narrative Note: []
--- NOTE | 2022-07-27 11:12 | BH.SGPN.GN ---
Behaviors/Verbalizations/Mental Status: []Pt alert and oriented, casual dress, hygiene tended to. Eye contact good. Motor activity WNL. Speech appropriate rate and tone. Affect congruent, mood euthymic.? Thoughts linear, logical, no signs of hallucinations or delusions. Client Response/Progress/Benefit: []Pt engaged in session as evidenced by pt listening to others and providing input throughout. Pt completed problem solving example with group and identified a goal they want to work on. Goal identified as: becoming more comfortable with making healthy changes in her life. Pt?s barriers included: toxic people, fear of failure, anxiety, and past experiences. Pt also identified steps she could take such as reaching out to healthy supports to help hold her accountable, make a list of small changes she can begin with to improve her comfort levels, and use mindfulness to aid in sitting with the uncomfortable. Pt seemed to benefit from learning about problem solving method and rehearsing problem-solving skills in the moment. Pt will continue IOP tx to promote gains, further increase self-care, and further reduce negative thinking. Narrative Note: []
--- NOTE | 2022-07-28 09:02 | BH.SGPN.GN ---
Behaviors/Verbalizations/Mental Status: []ye contact fair, casually dressed, motor activity appropriate, speech normal rate and tone, mood anxious, constricted affect, thoughts linear and intact, no evidence of delusions or hallucinations. Reviewed pt's symptom tracker, no indication of suicidal ideation or intent. Client Response/Progress/Benefit: [] Client respond well as evidenced by her listening attentively to others and sharing thoughts and feelings. Client reported currently feeling stressed and anxious because she starts a new job this weekend. Client expressed anxiety about having to work an environment in which she will be surrounded by other kids her age going to college when she is not in college. Seem to benefit from group helping her challenge negative thought patterns. Client recognizes the importance of having a job to have money and provide structure and routine. Client identified mental positive as going to the gym despite not wanting to. Client identified currently feeling apathetic and detached. Progress variable as evidenced by client's mood continuing to be impacted negatively or positively based on current situation. Client to continue IOP to stabilize moods, challenge negative thoughts, and prevent decompensation. Narrative Note: []
--- NOTE | 2022-07-28 10:10 | BH.SGPN.GN ---
Behaviors/Verbalizations/Mental Status: []Eye contact is fair to good. Motor activity is appropriate. Appearance is casual. Speech is Appropriate. Mood is depressed. Affect is constricted. Thoughts are linear and logical. No evidence of psychosis. Client Response/Progress/Benefit: []Pt was an active participant in group discussions. Attentive during psychoeducation and participated in interactive discussions in which group defined self-care, discussed the benefits to self-care, and identified common myths surrounding self-care. Pt shared that ?without self-care it?s difficult to fully engage and be present with the people in your life?. Group identified that self-care myths include; self-care is selfish, self-care is just personal hygiene, self-care should be fun, self-care is too time consuming, and I don?t deserve it. Pt and peers broke into smaller group and worked together to bust the myths associated with self-care. ?At times pt struggled with engagement as she appeared to be distracted by her own thoughts. Benefited from increased awareness of the self-care and its benefits. Will continue in IOP to prevent decompensation, increase consistent application of healthy coping skills, and improve functioning. Narrative Note: []
--- NOTE | 2022-07-28 11:10 | BH.SGPN.GN ---
Behaviors/Verbalizations/Mental Status: []Pt alert and oriented, casually dressed and groomed. Eye contact good. Motor activity appropriate. Speech within normal limits. Affect constricted, mood depressed and anxious. Thoughts linear, logical, no signs of hallucinations or delusions. Client Response/Progress/Benefit: []Pt engaged participant AEB completing self-assessment worksheet, but pt was mostly quiet during discussion. Participated throughout group discussion on the various areas of self-care. Pt completed worksheet which identified current self-care practices and what self-care activities pt wants to start using. Pt selected financial self-care to begin practicing more consistently. Pt plans to do this by creating a budget so she can start saving money when she starts her new job this weekend. Appeared to benefit from completing the self-care evaluation and gaining insights into current self-care practices, as well as identifying areas in which pt would like to improve upon. Will continue IOP tx to increase emotional regulation skills, improve impulse control, and improve mood stability. Narrative Note: []
== END 2022-07-28 23:59 ==
LOC: BHIOP 07:44
PROVIDERS: Visit Provider Psychiatry & Neurology Psychiatry
DX: F31.81 Bipolar II disorder (principal); F41.1 Generalized anxiety disorder; F43.10 Post-traumatic stress disorder, unspecified; F50.2 Bulimia nervosa; Z72.0 Tobacco use
CPT/HCPCS: H2012; H2020; S9480; 90832; 90834; 90837

== ENCOUNTER 2022-07-31 08:57 | Outpatient (RCR) | payer MEDICAID, SELFPAY ==
[2022-07-29 01:41] VITALS: BP 119/70; PULSE 60
--- NOTE | 2022-08-01 09:54 | BH.COMM ---
Communication Note - Communication with Client Communication Note: Client called cancelling attending IOP today due to not feeling well. Stated she will be attending tomorrow as long as she feels better.
--- NOTE | 2022-08-02 08:55 | BH.SGPN.GN ---
Behaviors/Verbalizations/Mental Status: []Eye contact fair ? often looking down, casually dressed, motor activity appropriate, speech normal rate and tone, mood depressed, constricted affect, thoughts linear and intact, no evidence of delusions or hallucinations. Reviewed pt's symptom tracker, reports suicidal ideation as 2/5, and intent as 2/5 as well; however, this is within pt typical baseline and denies active plan or intent as of this date 08/02/22. Client Response/Progress/Benefit: []Pt responded well to session, attentive and providing supportive feedback at times throughout. Pt reports feeling stressed out this morning and shared that she recently started a new job and is still adjusting to this. Expressed trying to challenge ?all or nothing? thinking and focus more on what she enjoys about the job, such as the variety of work and fast pace. Pt went on to identify spending more time with her family which has been a positive as well. Current stressor is maintaining consistent with use of healthy skills and limiting interactions with unhealthy supports. Pt appeared to benefit from group support and encouragement. Recommended continued IOP tx to continue to improve consistency of healthy skill application, reduce depressive sx, and further improve mood stability. Narrative Note: []
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
--- NOTE | 2022-08-03 08:07 | BH.COMM ---
Communication Note - Communication with Client Communication Note: Client called to let staff know couldn't make it to meet with IOP individual therapist today due to working until this morning. Client has been reminded if she doesn't show up to IOP tomorrow she will be discharged from the program. Client expressed understanding and stated she will be here.
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
== END 2022-08-07 08:03 | disposition home or self-care (01) ==
LOC: BHIOP 08:57
PROVIDERS: Visit Provider Psychiatry & Neurology Psychiatry
DX: F31.81 Bipolar II disorder (principal); F41.1 Generalized anxiety disorder; F43.10 Post-traumatic stress disorder, unspecified; F50.2 Bulimia nervosa; F12.90 Cannabis use, unspecified, uncomplicated; Z72.0 Tobacco use
CPT/HCPCS: 99214; H2012